=== PATIENT | female | born 1955 | race Caucasian/White ===

== ENCOUNTER 2020-06-07 09:51 | Outpatient (REF) | payer BC, SELFPAY ==
--- NOTE | 2020-06-07 10:04 | XR_ITS ---
EXAMINATION: XR ANKLE, LEFT CLINICAL INFORMATION: Pain left ankle COMPARISON: None TECHNIQUE: AP, lateral, and mortise views of the left ankle. FINDINGS: The malleoli are intact and the ankle mortise is symmetric. There is no fracture or dislocation. The talar dome shows no osteochondral lesion. The subtalar joint is unremarkable. The retrocalcaneal recess is preserved. There are bulky posterior and plantar spurs. IMPRESSION: No fracture or dislocation. Bulky posterior and plantar calcaneal spurs.
--- NOTE | 2020-06-07 10:21 | US_ITS ---
EXAMINATION: US VENOUS ULTRASOUND WITH DOPPLER LOWER EXTREMITY, LEFT CLINICAL INFORMATION: Edema distal left lower leg. Assess for occult DVT COMPARISON: Left leg venous ultrasound with Doppler 06/07/2018 TECHNIQUE: Ultrasound of the deep veins is performed from the hip to the calf with compression sonography and color and pulse Doppler assessment. Spectral analysis with color-flow imaging is performed. FINDINGS: There is normal venous compression and respiratory variation and augmented flow. The visualized common femoral vein, superficial femoral vein, profunda femoral vein, popliteal vein, and visualized mid calf peroneal and posterior tibial venous segments show no evidence of deep venous thrombosis. No popliteal fossa cyst. IMPRESSION: No DVT demonstrated in the left lower extremity.
[2020-06-07 11:47] LABS: Hematocrit 47.8 % (37-47); Hemoglobin 15.5 g/dl (12.0-16.0); Mean Corpuscular HGB Conc 32.4 g/dl (31.0-35.0); Mean Corpuscular Hemoglobin 29.2 pg (27.0-33.0); Mean Corpuscular Volume 90.2 fL (80-98); Mean Platelet Volume 10.8 fL (9.4-12.3); Platelet Count 266 X10*3/uL (160-400); Red Cell Distribution Width 13.7 % (11.0-16.0); White Blood Count 7.3 X10*3/uL (4.8-10.8)
[2020-06-07 12:05] LABS: Alanine Aminotransferase 21 U/L (0-31); Albumin Level 4.3 g/dL (3.5-5.0); Alkaline Phosphatase 78 U/L (39-117); Anion Gap 15 (12-20); Aspartate Amino Transferase 21 U/L (5-31); Bilirubin Total 0.4 mg/dL (0.0-1.0); Blood Urea Nitrogen 16 mg/dL (9-16); Calcium 9.1 mg/dL (8.4-10.2); Carbon Dioxide 27 mmol/L (22-29); Chloride 105 mmol/L (96-108); Cholesterol 158 mg/dL; Estimated Glomerular Filt Rate > 60; Glucose Fasting 98 mg/dL (60-99); HDL Cholesterol 36 mg/dL; LDL Cholesterol Calculated 93 mg/dl; Potassium 4.7 mmol/l (3.3-5.1); Sodium 142 mmol/L (135-145); Total Protein 6.7 g/dL (6.5-8.0); Triglycerides 145 mg/dL
[2020-06-12 12:07] LABS: Vitamin D 25-OH, D2 <4 ng/mL; Vitamin D 25-OH, D3 38 ng/mL; Vitamin D 25-OH, Total 38 ng/mL (30-100)
== END 2020-06-07 09:52 | disposition home or self-care (01) ==
LOC: HO.HMGCLDS 09:51
PROVIDERS: PCP Internal Medicine; Visit Provider Internal Medicine
DX: Z00.00 Encounter for general adult medical examination without abnormal findings (principal); M25.572 Pain in left ankle and joints of left foot; M25.472 Effusion, left ankle; E78.5 Hyperlipidemia, unspecified; M17.0 Bilateral primary osteoarthritis of knee; R60.0 Localized edema
CPT/HCPCS: 36415; 73610; 80053; 80061; 82306; 84443; 85027; 93971

== ENCOUNTER 2020-06-07 10:35 | Outpatient (REF) | payer BC, SELFPAY | END 2020-06-07 10:36 | disposition home or self-care (01) | LOC: HO.LAB 10:35 | PROVIDERS: Visit Provider Internal Medicine | DX: Z12.4 Encounter for screening for malignant neoplasm of cervix (principal) | CPT/HCPCS: 88142 ==

== ENCOUNTER 2020-06-24 11:26 | Outpatient (REF) | payer BC, SELFPAY ==
--- NOTE | 2020-06-24 11:29 | MM_ITS ---
EXAMINATION: BONE DENSITOMETRY CLINICAL INDICATION: Other specified disorders of bone density and structure, unspecified site. COMPARISON: This is the patient's baseline examination. TECHNIQUE: Using a [employer] DXA System (software version: 13.1) manufactured by [employer], dual-energy x-ray absorptiometry was performed of the lumbar spine and left hip. The images are of good technical quality. Summary results are attached. FINDINGS: AP SPINE L1-L4: BMD 1.053 g/cm2, Z-score -0.4, T-score -1.1, osteopenia. LEFT FEMUR, NECK: BMD 0.800 g/cm2, Z-score -0.9, T-score -1.7, osteopenia. LEFT FEMUR, TOTAL: BMD 0.956 g/cm2, Z-score 0.1, T-score -0.4, normal. IDENTIFIED RISK FACTORS: Early menopause, secondary osteoporosis. HISTORY OF FRACTURE: None listed. MEDICATIONS: Vitamin D. MM/XR DEXA axial skeleton IMPRESSION: 1. DIAGNOSIS: Osteopenia based on the lowest T-score value of -1.7 in the femoral neck applying World Health Organization criteria. 2. 10-YEAR FRACTURE RISK PREDICTION, FRAX: Major osteoporotic fracture (clinical spine, forearm, hip or shoulder) 8.5%. Hip fracture 0.9%. 3. Treatment Recommendations: NOF guidelines recommend consideration for treatment in postmenopausal women and men age 50 and older presenting with the following: -A hip or vertebral (clinical or morphometric) fracture. -T-score less than or equal to -2.5 at the femoral neck or spine after appropriate evaluation to exclude secondary causes. -Low bone mass at the hip or spine and a 10-year fracture probability by FRAX of greater than or equal to 3% for hip fracture or greater than or equal to 20% for major osteoporotic fracture based on the [place] adapted WHO algorithm. 4. Other Recommendations: All treatment decisions require clinical judgment and consideration of individual patient factors, including patient preferences, comorbidities, previous drug use, risk factors not captured in the FRAX model (e.g. frailty, falls, vitamin D deficiency, increased bone turnover, interval significant decline in bone density) and possible under or overestimation of fracture risk by FRAX. Additional medical evaluation for secondary cause of low bone mineral density may be appropriate. FUTURE SCAN RECOMMENDATION: People with diagnosed cases of osteoporosis or at high risk for fracture should have regular bone mineral density tests. For patients eligible for Medicare, routine testing is allowed once every 2 years. The testing frequency can be increased to one year for patients who have rapidly progressing disease, those who are receiving or discontinuing medical therapy to restore bone mass, or have additional risk factors.
== END 2020-06-24 11:27 | disposition home or self-care (01) ==
LOC: HO.MAMMO 11:26
PROVIDERS: PCP Internal Medicine; Visit Provider Internal Medicine
DX: Z13.820 Encounter for screening for osteoporosis (principal); M85.80 Other specified disorders of bone density and structure, unspecified site; Z78.0 Asymptomatic menopausal state; Z79.899 Other long term (current) drug therapy
CPT/HCPCS: 77080

== ENCOUNTER 2021-06-13 09:25 | Outpatient (REF) | payer BC, SELFPAY ==
[2021-06-13 11:34] LABS: Appearance Urine CLEAR; Color Urine YELLOW; Glucose Urine UA NEG (NEG); Leukocyte Esterase Urine TRACE (NEG); Nitrite Urine NEG (NEG); Specific Gravity - Urine 1.025 (1.005-1.025); Urine Blood TRACE (NEG); Urine Ketones NEG (NEG); Urine Protein NEG (NEG-TRACE)
[2021-06-13 11:35] LABS: Hematocrit 45.4 % (37-47); Hemoglobin 14.8 g/dl (12.0-16.0); Mean Corpuscular HGB Conc 32.6 g/dl (31.0-35.0); Mean Corpuscular Hemoglobin 29.5 pg (27.0-33.0); Mean Corpuscular Volume 90.6 fL (80-98); Mean Platelet Volume 10.8 fL (9.4-12.3); Platelet Count 249 X10*3/uL (160-400); Red Blood Count 5.01 X10*6/uL (4.20-5.50); Red Cell Distribution Width 13.9 % (11.0-16.0); White Blood Count 6.3 X10*3/uL (4.8-10.8)
[2021-06-13 12:15] LABS: Alanine Aminotransferase 18 U/L (0-31); Albumin Level 4.2 g/dL (3.5-5.0); Alkaline Phosphatase 72 U/L (39-117); Anion Gap 10 (12-20); Aspartate Amino Transferase 18 U/L (5-31); Bilirubin Total 0.5 mg/dL (0.0-1.0); Blood Urea Nitrogen 15 mg/dL (9-16); Calcium 9.3 mg/dL (8.4-10.2); Carbon Dioxide 30 mmol/L (22-29); Chloride 105 mmol/L (96-108); Cholesterol 169 mg/dL; Estimated Glomerular Filt Rate > 60; Glucose Fasting 104 mg/dL (60-99); HDL Cholesterol 37 mg/dL; LDL Cholesterol Calculated 106 mg/dl; Sodium 140 mmol/L (135-145); Total Protein 6.4 g/dL (6.5-8.0); Triglycerides 132 mg/dL
[2021-06-13 12:20] LABS: TSH reflex Free T4 1.22 uIU/mL (0.32-4.0)
[2021-06-13 12:40] LABS: RBC Urine 0-2 /HPF (0); Squamous Epithelial Cell Urine 3+ /LPF; WBC Urine 0-2 /HPF (0-4)
== END 2021-06-13 09:26 | disposition home or self-care (01) ==
LOC: HO.HMGCLDS 09:25
PROVIDERS: PCP Internal Medicine; Visit Provider Internal Medicine
DX: Z00.00 Encounter for general adult medical examination without abnormal findings (principal); E78.5 Hyperlipidemia, unspecified; E66.9 Obesity, unspecified
CPT/HCPCS: 36415; 80053; 80061; 81001; 84443; 85027

== ENCOUNTER 2021-06-30 12:43 | Outpatient (REF) | payer BC, SELFPAY ==
--- NOTE | ~2021-06-30 | XR_ITS ---
EXAMINATION: XR SHOULDER, RIGHT CLINICAL INFORMATION: Straining of the muscle. COMPARISON: None TECHNIQUE: Three views of the right shoulder. FINDINGS: No fracture or dislocation. The glenohumeral joint is well aligned. Moderate osteophyte formation at the inferior glenohumeral joint. Calcifications in the soft tissues adjacent to the humeral greater tuberosity. The acromioclavicular joint is intact with mild hypertrophic degenerative change. The visualized lung is clear. The visualized ribs are intact. XR/XR shoulder RT min 2V IMPRESSION: Mild to moderate degenerative changes at the right shoulder. There may be calcific tendinosis of the rotator cuff as well.
== END 2021-06-30 12:44 | disposition home or self-care (01) ==
LOC: HO.XRAY 12:43
PROVIDERS: PCP Internal Medicine; Visit Provider Internal Medicine
DX: S46.911A Strain of unspecified muscle, fascia and tendon at shoulder and upper arm level, right arm, initial encounter (principal)
CPT/HCPCS: 73030

== ENCOUNTER 2022-06-10 11:10 | Outpatient (REF) | payer MEDICARE, BC, SELFPAY ==
[2022-06-10 14:15] LABS: MANUAL DIFF FLAG NO
[2022-06-10 14:15] LABS: Appearance Urine Clear; Color Urine Yellow; Glucose Urine UA Negative (Negative); Leukocyte Esterase Urine Negative (Negative); Nitrite Urine Negative (Negative); Urine Blood Negative (Negative); Urine Ketones Negative (Negative); Urine Protein Negative (Neg-Trace)
[2022-06-10 14:18] LABS: Bacteria Urine None Seen (None Seen); Hyaline Casts Urine 0-2 /LPF (0-2); RBC Urine 0-2 /HPF (0-2); Squamous Epithelial Cell Urine 0-2 /HPF (0-2); WBC Urine 0-5 /HPF (0-5)
[2022-06-10 14:19] LABS: Basophils Absolute Auto 0.1 X10*3/uL (0.0-0.2); Basophils Percent Auto 0.9 % (0-2); Eosinophils Absolute Auto 0.1 X10*3/uL (0.0-0.4); Eosinophils Percent Auto 1.9 % (0-4); Hematocrit 44.3 % (37.0-47.0); Hemoglobin 14.5 g/dl (12.0-16.0); Imm Gran Abs Auto 0.04 X10*3/uL (0.00-0.03); Imm Gran Pct Auto 0.6 % (0.0-0.4); Lymphocytes Absolute Auto 1.8 X10*3/uL (1.2-4.9); Lymphocytes Percent Auto 25.4 % (20-40); Mean Corpuscular HGB Conc 32.7 g/dl (31.0-35.0); Mean Corpuscular Hemoglobin 29.8 pg (27.0-33.0); Mean Platelet Volume 10.3 fL (9.4-12.3); Monocytes Absolute Auto 0.7 X10*3/uL (0.1-1.2); Monocytes Percent Auto 9.5 % (2-11); Neutrophils Absolute Auto 4.3 x10*3/uL (2.0-8.3); Neutrophils Percent Auto 61.7 % (45-73); Platelet Count 267 X10*3/uL (160-400); Red Blood Count 4.87 X10*6/uL (4.20-5.50); Red Cell Distribution Width 14.6 % (11.0-16.0)
[2022-06-10 14:42] LABS: Alanine Aminotransferase 18 U/L (0-31); Albumin Level 4.1 g/dL (3.5-5.0); Alkaline Phosphatase 64 U/L (39-117); Anion Gap 15 (12-20); Aspartate Amino Transferase 19 U/L (5-31); Bilirubin Total 0.4 mg/dL (0.0-1.0); Blood Urea Nitrogen 16 mg/dL (9-16); Carbon Dioxide 27 mmol/L (22-29); Chloride 105 mmol/L (96-108); Cholesterol 162 mg/dL; Estimated Glomerular Filt Rate > 60; Glucose Fasting 98 mg/dL (60-99); HDL Cholesterol 39 mg/dL; LDL Cholesterol Calculated 99 mg/dl; Potassium 4.5 mmol/L (3.3-5.1); Sodium 142 mmol/L (135-145); Total Protein 6.4 g/dL (6.5-8.0); Triglycerides 123 mg/dL
[2022-06-10 15:10] LABS: TSH reflex Free T4 1.01 uIU/mL (0.32-4.0)
== END 2022-06-10 11:11 | disposition home or self-care (01) ==
LOC: HO.HMGCLDS 11:10
PROVIDERS: PCP Internal Medicine; Visit Provider Internal Medicine
DX: Z00.00 Encounter for general adult medical examination without abnormal findings (principal); I10 Essential (primary) hypertension; E66.9 Obesity, unspecified; E78.5 Hyperlipidemia, unspecified
CPT/HCPCS: 36415; 80053; 80061; 81001; 84443; 85025

== ENCOUNTER → 2022-12-16 07:48 | Outpatient (REF) | payer MEDICARE, BC, SELFPAY ==
--- NOTE | 2022-12-16 07:51 | CA_ITS ---
Transthoracic Echocardiogram Patient (Last, First, Middle): Ana María Heller A Gender: Female Date of : 1955 Age: 67 Procedure Date: 12/16/2022 Procedure Type: Transthoracic Echocardiogram Location: OP Height: 154.94 cm Weight: 90.72 kg BSA: 1.89 m2 Heart Rate: 66 bpm BP: 120 / 70 mmHg Group Captain: SB Referring MD: Sandra Sierra MD Symptoms: M79.89 - Other specified soft tissue disorders Study Quality: Adequate w contrast ECG Rhythm: Sinus Conclusions: - The left ventricular systolic function is normal. The calculated ejection fraction is 67% by biplane method. - There is mildly decreased right ventricular systolic function. - No obvious valvular pathology seen on this study. Findings Procedure Information Contrast agent, definity, is being given per protocol without apparent complications. Left Ventricle Normal left ventricular cavity size. There is normal left ventricular wall thickness. The left ventricular systolic function is normal. The calculated ejection fraction is 67% by biplane method. There is no evidence of regional wall motion abnormalities. Evidence suggests grade I (mild) diastolic dysfunction. Focal hypertrophy of basal septum. Right Ventricle Normal right ventricular cavity size. There is mildly decreased right ventricular systolic function. Atria Both atria are normal in size. Aortic Valve There is a normal trileaflet aortic valve. There is no aortic valve stenosis. There is no aortic valve regurgitation. Mitral Valve The mitral valve appears normal. There is trace mitral valve regurgitation. There is no mitral valve stenosis. Pulmonic Valve The pulmonic valve is likely normal. Tricuspid Valve Normal tricuspid valve structure. There is trace tricuspid valve regurgitation. There is no evidence of pulmonary hypertension. Great Vessels The asc aorta and aortic arch are normal in size. Venous The inferior vena cava is normal in size and collapses greater than 50% with inspiration. Pericardium/Pleural There is no evidence of pericardial effusion. Prior Study Comparison No prior study available for comparison. Recommendations, Care & Conclusions No obvious valvular pathology seen on this study. Measurements 2D Linear Measurements IVSd: 0.72 0.6-0.9/0.6-1.0 cm LVIDd: 4.06 3.9-5.3/4.2-5.9 cm LVIDd Index: 2.15 2.4-3.2/2.2-3.1 cm/m2 LVIDs: 2.62 2.0-3.6 cm LVPWd: 0.86 0.7-1.1 cm LA Diam: 3.10 2.7-3.8/3.0-4.0 cm LAIDs Index: 1.64 1.5-2.3 cm/m2 LV Mass: 116.49 67-162/88-224 g LV Mass Index: 61.63 43-95/49-115 g/m2 LVOT Diam: 2.10 3.0+(-)1.3 cm 2D Systolic Function EF 4C: 68.80 >55% EF 2C: 64.90 >55% EF BiP: 66.60 >55% Mitral Valve MV Pk E: 0.63 MV PK A: 0.72 MV Decel Time: 168.00 E/A: 0.90 E'Lateral: 5.33 E'Medial: 3.70 E/E' Med: 17.00 E/E' Lat: 11.80 PHT: 49.00 MVA PHT: 4.49 Decel Brule: 3.75 Aortic Valve AoV Pk Jj: 1.02 AoV Pk Grad: 4.00 MAGALI: 2.70 LVOT LVOT Pk Jj: 0.78 LVOT Mn Jj: 0.53 LVOT VTI: 0.15 LVOT Pk Grad: 2.00 LVOT Mn Grad: 1.00 LVOT Diam: 2.10 LVOT Area: 3.46 Diastolic Function MV Pk E: 0.63 MV Pk A: 0.72 E/A: 0.90 E'Medial: 3.70 E/E' Med: 17.00 E' Laterial: 5.33 E/E' Lat: 11.80 Right Ventricle TAPSE (mm): 15.80 TVS' Jj: 8.59 Tricuspid Valve TR Pk Jj: 1.63 TR Pk Grad: 11.00 RA Press: 3.00 RVSP: 14.00 Great Vessels Aorta Sinus of Valsalva: 3.10 2.0-3.5 cm Ao Asc: 2.50 2.1-3.4 cm Ao Arch: 2.50 Pulmonary Valve PV Pk Jj: 0.76 Peak PV Grad: 2.00 Updated in Other Vendor System with Status of Final Fabrice Rodriguez MD electronically signed on 12/18/2022 1:01:48 PM with status of Final
== END ==
LOC: HO.CARD 07:48
PROVIDERS: PCP Internal Medicine; Visit Provider Internal Medicine
DX: R60.9 Edema, unspecified (principal); I10 Essential (primary) hypertension; M79.89 Other specified soft tissue disorders
CPT/HCPCS: 93306; Q9957

== ENCOUNTER 2022-12-25 10:40 | Outpatient (REF) | payer MEDICARE, BC, SELFPAY ==
[2022-12-25 12:30] LABS: B Type Natriuretic Peptide 12 pg/mL (<100)
[2022-12-25 12:50] LABS: Anion Gap 12 (12-20); Blood Urea Nitrogen 21 mg/dL (9-16); Calcium 9.4 mg/dL (8.4-10.2); Carbon Dioxide 30 mmol/L (22-29); Chloride 103 mmol/L (96-108); Estimated Glomerular Filt Rate > 60; Glucose Random 92 mg/dL (60-115); Potassium 4.7 mmol/L (3.3-5.1); Sodium 140 mmol/L (135-145)
== END 2022-12-25 10:41 | disposition home or self-care (01) ==
LOC: HO.HMGCLDS 10:40
PROVIDERS: PCP Internal Medicine; Visit Provider Internal Medicine
DX: R60.9 Edema, unspecified (principal)
CPT/HCPCS: 36415; 80048; 83880

== ENCOUNTER → 2023-01-19 15:24 | Outpatient (BNVA) | payer MEDICARE, BC, SELFPAY | PROVIDERS: PCP Internal Medicine; Visit Provider Surgery Vascular Surgery | DX: I83.11 Varicose veins of right lower extremity with inflammation (principal) | CPT/HCPCS: 99202 ==

== ENCOUNTER 2023-01-29 10:29 | Outpatient (REF) | payer MEDICARE, BC, SELFPAY ==
--- NOTE | ~2023-01-29 | US_ITS ---
EXAMINATION: US LOWER EXTREMITY VENOUS (REFLUX EXAM), BILATERAL CLINICAL INDICATION: Chronic venous insufficiency with lower extremity varicose veins, inflammation COMPARISON: None. TECHNIQUE: Color flow triplex imaging and compression Doppler was performed to evaluate both the deep and the superficial systems bilaterally. To evaluate the superficial system, the examination was performed in the upright position. Color-flow Doppler ultrasound and compression ultrasound were utilized. In addition, maneuvers were utilized to demonstrate reflux. FINDINGS: 1. DEEP VENOUS ULTRASOUND OF THE RIGHT LOWER EXTREMITY: Common Femoral Vein: Compressible, normal respiratory variation and augmented flow. Femoral Vein: Compressible, normal color flow and augmentation. Popliteal Vein: Compressible, normal augmentation. Deep Reflux: There is no evidence of reflux in the deep system in either the common femoral vein or the popliteal vein. There is no evidence of a Caldwell's cyst. 2. SUPERFICIAL ULTRASOUND WITH DOPPLER OF RIGHT LOWER EXTREMITY: GREAT SAPHENOUS VEIN: Saphenofemoral Junction: 0.5 cm; Reflux: 0 ms Proximal Thigh: 0.3 cm; Reflux: 0 ms Mid Thigh: 0.2 cm; Reflux: 0 ms Above Knee: 0.2 cm; Reflux: 0 ms At Knee: Not visualized Below Knee: 0.2 cm; Reflux: 0 ms Mid Calf: 0.2 cm; Reflux: 0 ms Ankle: 0.2 cm; Reflux: 0 ms DUPLICATED MEDIAL GREAT SAPHENOUS VEIN: Diameter: None imaged Reflux: NA DUPLICATED LATERAL GREAT SAPHENOUS VEIN: Diameter: 0.4 cm Reflux: None SMALL SAPHENOUS VEIN: Proximal: 0.2 cm; Reflux: 0 ms Distal: 0.2 cm; Reflux: 0 ms VEIN OF GIACOMINI: Size: NA Reflux: NA PERFORATORS: Location: None significant Size: NA Reflux: NA VARICOSITIES: Location: Distal thigh Size: 0.3 cm Reflux: None 3. DEEP VENOUS ULTRASOUND OF THE LEFT LOWER EXTREMITY: Common Femoral Vein: Compressible, normal respiratory variation and augmented flow. Femoral Vein: Compressible, normal color flow and augmentation. Popliteal Vein: Compressible, normal augmentation. Deep Reflux: There is no evidence of reflux in the deep system in either the common femoral vein or the popliteal vein. There is no evidence of a Caldwell's cyst. 4. SUPERFICIAL ULTRASOUND WITH DOPPLER OF LEFT LOWER EXTREMITY: GREAT SAPHENOUS VEIN: Saphenofemoral Junction: 0.4 cm; Reflux: 0 ms Proximal Thigh: 0.3 cm; Reflux: 0 ms Mid Thigh: 0.2 cm; Reflux: 0 ms Above Knee: 0.2 cm; Reflux: 0 ms At Knee: 0.3 cm; Reflux: 0 ms Below Knee: 0.3 cm; Reflux: 0 ms Mid Calf: 0.2 cm; Reflux: 0 ms Ankle: 0.3 cm; Reflux: 0 ms DUPLICATED MEDIAL GREAT SAPHENOUS VEIN: Diameter: None imaged Reflux: NA DUPLICATED LATERAL GREAT SAPHENOUS VEIN: Diameter: 0.2 cm Reflux: None SMALL SAPHENOUS VEIN: Proximal: 0.2 cm; Reflux: 0 ms Distal: 0.2 cm; Reflux: 0 ms VEIN OF GIACOMINI: Size: NA Reflux: NA PERFORATORS: Location: Mid calf Size: 0.3 cm Reflux: None VARICOSITIES: Location: Posterior distal thigh and a posterior lateral distal thigh Size: 0.3 cm Reflux: Ranging from 1904 ms to 2616 ms US/US venous duplex LE BI IMPRESSION: Right: No significant venous insufficiency or reflux in the great saphenous vein or small saphenous vein Left: No significant venous insufficiency or reflux in the great saphenous vein or small saphenous vein. There are varicose veins in the posterior and posterior lateral distal thigh with reflux as described above
== END 2023-01-29 10:30 | disposition home or self-care (01) ==
LOC: HO.US 10:29
PROVIDERS: PCP Internal Medicine; Visit Provider Surgery Vascular Surgery
DX: I83.11 Varicose veins of right lower extremity with inflammation (principal)
CPT/HCPCS: 93970

== ENCOUNTER 2023-03-11 11:13 | Outpatient (AMB) | payer MEDICARE, BC, SELFPAY ==
[2023-03-11 11:15] VITALS: BP 110/66; PULSE 79; O2SAT 98; BMI 34.9
--- NOTE | 2023-03-11 11:15 | MHC.PC.OV ---
Vital Signs 03/11/23 11:15 Height 5 ft 3 in Weight 197 lb BMI 34.9 BP 110/66 Blood Pressure Location Lt brachial Position Sitting Pulse 79 Pulse Source Pulse Oximeter Pulse Oximetry (%) 98 Oxygen Delivery Method Room Air Intake Visit Reasons: BP Follow up Intake Note: Pt is here today for a follow up visit on BP. Allergies doxycycline Allergy (Verified 03/11/23 11:18) rash on face chest and arms Medication List - Last Reconciled 03/11/23 by Sandra Sierra MD cholecalciferol (vitamin D3) 50 mcg PO DAILY furosemide (Lasix) 20 mg PO DAILY gabapentin 100 mg PO BID lidocaine 5% 1 patch topical DAILY meloxicam 15 mg PO DAILY PRN olmesartan 15 mg (3 x 5 mg) PO DAILY omega [id number]-fish oil 1,000 mg (120 mg-180 mg) (Fish Oil) 1 cap PO DAILY pravastatin 20 mg PO DAILY Tobacco use date assessed: 12/07/22 Dental Screening Dental Screen Date: 03/11/23 Did you have a dental visit in the last 12 months?: Yes Did you have a dental problem in the last 6 months where you did not have access to dental care?: No Was dental information given to patient?: Patient has dentist HPI BP Follow up HPI Details Pt presents for the follow-up of hypertension hyperlipidemia and chronic lower extremity edema. She has been taking furosemide 4 times a week without significant improvement. Patient had venous Doppler and will follow-up with vascular surgeon Dr. Wilkes. Patient try compression knee highs but could not tolerate to wear them. Echocardiogram was normal [facility] Medical History (Updated 01/20/23 @ 12:41 by Eben Wilkes MD) Annual physical exam HTN (hypertension) Hyperlipemia Knee pain, bilateral Mammogram normal Normal Pap smear Obese Osteoarthritis of knees, bilateral Osteopenia Pain and swelling of left ankle Tear meniscus knee Surgical History H/O colonoscopy No pertinent past surgical history Family History Father No problems noted. Mother HTN (hypertension) Stroke Son No problems noted. Son No problems noted. Daughter No problems noted. Social History (Updated 01/19/23 @ 15:32 by Massiel Alfonso) Housing: House Alcohol intake: current Alcohol intake frequency: holidays/special occasions only Patient Tobacco Use Status: Never used Tobacco e-Cigarette/Vaping Use: Never Used Current occupational status: employed Cognitive needs: No Hearing needs: No Vision needs: No Questionnaire Thrive Questionnaire Date Thrive assessed: 12/07/22 SHADE-7 AMB Questionnaire SHADE-7 Date SHADE - 7 assessed: 12/07/22 Source: Developed by Drs. Gabe Scott, Eva Ashford, Dominic Gutierrez and colleagues, with an educational jay from [employer]. Review of Systems Const All systems reviewed & are unremarkable except as noted in HPI and below Reports no additional complaints Eyes Reports no additional complaints ENT Reports no additional complaints Card Reports no additional complaints Resp Reports no additional complaints GI Reports no additional complaints Reports no additional complaints Physical exam (Primary Care) Vital Signs: Last Vital Signs Pulse 79 03/11/23 11:15 BP 110/66 03/11/23 11:15 Pulse Ox 98 03/11/23 11:15 Oxygen Delivery Method Room Air 03/11/23 11:15 BMI result Body Mass Index 34.9 Tobacco/Smoking Status: Tobacco use Status Tobacco use date assessed 12/07/22 03/11/23 11:16 Patient Tobacco Use Status Never used Tobacco 03/11/23 11:16 e-Cigarette/Vaping Use Never Used 03/11/23 11:16 Thrive Assessment: Date of Thrive Assessment Date Thrive assessed 12/07/22 03/11/23 11:16 Const General: no acute distress HENMT Mouth: Normal oral and palatal mucosa present Neck Neck: Yes supple Resp Effort & Inspection: normal respiratory effort Auscultation: clear to auscultation bilaterally Cardio Rhythm: regular rhythm Heart sounds: S1 normal heart sound present and S2 normal heart sound present Extrem Other: 1+ pitting edema bilaterally Assessment and Plan Assessment & Plan (1) Edema: Code(s): R60.9 - Edema, unspecified Plan: f/u with vascular surgeon (2) HTN (hypertension): Code(s): I10 - Essential (primary) hypertension Plan: cont med (3) Hyperlipemia: Code(s): E78.5 - Hyperlipidemia, unspecified Plan: cont statin (4) Obese: Code(s): E66.9 - Obesity, unspecified Plan: weight loss discussed Coding Level of Care Code Est Pt Level 4 (54510) Diagnoses Edema R60.9 HTN (hypertension) I10 Hyperlipemia E78.5 Obese E66.9
== END 2023-03-11 11:59 | disposition home or self-care (01) ==
PROVIDERS: Visit Provider Internal Medicine
DX: I10 Essential (primary) hypertension (principal); E66.9 Obesity, unspecified; Z68.34 Body mass index [BMI] 34.0-34.9, adult; E78.5 Hyperlipidemia, unspecified; R60.9 Edema, unspecified
CPT/HCPCS: 99214

== ENCOUNTER 2023-03-11 15:13 | Outpatient (AMB) | payer MEDICARE, BC, SELFPAY ==
[2023-03-11 15:16] VITALS: BMI 34.9
--- NOTE | 2023-03-11 15:16 | A.OFFVIS_ITS ---
Intake Vital Signs 03/11/23 15:16 Height 5 ft 3 in Weight 197 lb BMI 34.9 Intake Visit Reasons: follow up US 01/29/2023 Intake Note: follow up US for LE swelling, Left LE worse than Right LE. Pt states ankle and foot are swollen. Pt states swelling is worse when she is on her feet all day. States socks and shoes hurt her feet. Accompanied by: Self / Same As Patient Allergies doxycycline Allergy (Verified 03/11/23 15:20) rash on face chest and arms HPI follow up 01/29/2023 HPI Details Very pleasant 67-year-old female presents for follow-up regarding lower extremity swelling pain and discomfort. She reports it is left more so than right. It has been persistent. She has had a trial of compression stockings which she has not been able to tolerate especially with a tight knee band. In addition she does have complaints of plantar fasciitis. She now presents to us for follow-up evaluation with venous insufficiency testing. FOR[facility]LY [facility], [facility] Medical History Annual physical exam HTN (hypertension) Hyperlipemia Knee pain, bilateral Mammogram normal Normal Pap smear Obese Osteoarthritis of knees, bilateral Osteopenia Pain and swelling of left ankle Tear meniscus knee Surgical History H/O colonoscopy No pertinent past surgical history Family History Father No problems noted. Mother HTN (hypertension) Stroke Son No problems noted. Son No problems noted. Daughter No problems noted. Social History Housing: House Alcohol intake: current Alcohol intake frequency: holidays/special occasions only Patient Tobacco Use Status: Never used Tobacco e-Cigarette/Vaping Use: Never Used Current occupational status: employed Cognitive needs: No Hearing needs: No Vision needs: No Review of Systems Const Reports as per HPI ENT Reports no additional complaints Card Denies chest pain, Denies chest pain at rest and Denies chest pain with activity Resp Denies chest congestion and Denies cough GI Reports no additional complaints Musc Details: pain over varicosities, aching of lower extremities, swelling, cramping, heaviness and tiredness, itching Denies abnormal gait Skin/Breast Reports pruritus and Denies wounds Neuro Reports no additional complaints and Denies abnormal gait Psych Denies no additional complaints Physical Exam Vital Signs: BMI result Body Mass Index 34.9 Const General: cooperative, healthy appearing and comfortable Orientation/consciousness: oriented to person, oriented to place and oriented to time Neck Carotids: no bruits Chest Chest palpation & inspection: normal inspection of the chest and normal palpation of entire chest wall Resp Effort & Inspection: normal respiratory effort and able to speak in complete sentences Cardio Rate: regular rate Heart sounds: S1 normal heart sound present and S2 normal heart sound present Peripheral pulses: Peripheral pulses 2+ throughout GI Inspection: Yes normal to inspection Skin Other: +2 edema, left greater than right General skin exam: dry skin Neuro General: oriented to person, oriented to place and oriented to time Extrem Right lower extremity: full ROM, normal capillary refill and edema Left lower extremity: full ROM, normal capillary refill and edema Psych Mental Status: mental status grossly normal Results Reviewed Results Reviewed: Brief summary of venous insufficiency testing is as follows: right great saphenous vein: negative right small saphenous vein: negative right accessory vein: none present left great saphenous vein: negative left small saphenous vein: negative left accessory vein: none present Please note there is no evidence of any venous aneurysms or significant tortuosity Assessment & Plan Assessment & Plan (1) Edema: Code(s): R60.9 - Edema, unspecified Plan: In short unclear etiology of lower extremity swelling it does not appear to be arterial in nature as she does have palpable pulses and venous insufficiency testing has shown to be negative. We did discuss routine conservative measures including compression elevation and exercise. In addition should the pain and discomfort persist may benefit from of podiatric evaluation in particular for plantar fasciitis. Patient will follow up with us on as-needed basis. Thank you for allowing us to assist in her care. If there are any questions or concerns please do not hesitate to contact us. Coding Level of Care Code Est Pt Level 4 (35732) Diagnoses Edema R60.9
== END 2023-03-11 15:50 | disposition home or self-care (01) ==
PROVIDERS: PCP Internal Medicine; Visit Provider Surgery Vascular Surgery
DX: R60.9 Edema, unspecified (principal)
CPT/HCPCS: 99213

== ENCOUNTER → 2023-03-11 15:13 | Outpatient (BNVA) | payer MEDICARE, BC, SELFPAY | PROVIDERS: PCP Internal Medicine; Visit Provider Surgery Vascular Surgery | DX: R60.0 Localized edema (principal) | CPT/HCPCS: 99212 ==

== ENCOUNTER 2023-08-09 10:00 | Outpatient (REF) | payer MEDICARE, BC, SELFPAY ==
[2023-08-09 13:17] LABS: MANUAL DIFF FLAG NO
[2023-08-09 13:41] LABS: Basophils Absolute Auto 0.1 X10*3/uL (0.0-0.2); Eosinophils Absolute Auto 0.1 X10*3/uL (0.0-0.4); Eosinophils Percent Auto 1.7 % (0-4); Hematocrit 45.5 % (37.0-47.0); Hemoglobin 14.6 g/dl (12.0-16.0); Imm Gran Abs Auto 0.03 X10*3/uL (0.00-0.03); Imm Gran Pct Auto 0.5 % (0.0-0.4); Lymphocytes Absolute Auto 1.8 X10*3/uL (1.2-4.9); Lymphocytes Percent Auto 30.1 % (20-40); Mean Corpuscular HGB Conc 32.1 g/dl (31.0-35.0); Mean Corpuscular Hemoglobin 28.9 pg (27.0-33.0); Mean Corpuscular Volume 89.9 fL (80.0-98.0); Mean Platelet Volume 10.2 fL (9.4-12.3); Monocytes Absolute Auto 0.5 X10*3/uL (0.1-1.2); Monocytes Percent Auto 9.3 % (2-11); Neutrophils Absolute Auto 3.3 x10*3/uL (2.0-8.3); Neutrophils Percent Auto 57.4 % (45-73); Platelet Count 291 X10*3/uL (160-400); Red Blood Count 5.06 X10*6/uL (4.20-5.50); Red Cell Distribution Width 13.8 % (11.0-16.0); White Blood Count 5.8 X10*3/uL (4.8-10.8)
[2023-08-09 14:12] LABS: Alanine Aminotransferase 16 U/L (0-31); Alkaline Phosphatase 65 U/L (39-117); Anion Gap 12 (12-20); Aspartate Amino Transferase 19 U/L (5-31); Bilirubin Total 0.4 mg/dL (0.0-1.0); Blood Urea Nitrogen 17 mg/dL (9-16); Calcium 9.5 mg/dL (8.4-10.2); Carbon Dioxide 29 mmol/L (22-29); Chloride 106 mmol/L (96-108); Cholesterol 159 mg/dL (<200); Estimated Glomerular Filt Rate > 60; Glucose Fasting 100 mg/dL (60-99); HDL Cholesterol 36 mg/dL (>40); LDL Cholesterol Calculated 101 mg/dL (<100); Potassium 4.8 mmol/L (3.3-5.1); Sodium 142 mmol/L (135-145); Triglycerides 112 mg/dL (<150)
[2023-08-09 14:28] LABS: TSH reflex Free T4 1.15 uIU/mL (0.32-4.0)
== END 2023-08-09 10:01 | disposition home or self-care (01) ==
LOC: HO.HMGCLDS 10:00
PROVIDERS: PCP Internal Medicine; Visit Provider Internal Medicine
DX: I10 Essential (primary) hypertension (principal); R60.9 Edema, unspecified; E78.5 Hyperlipidemia, unspecified
CPT/HCPCS: 36415; 80053; 80061; 84443; 85025

== ENCOUNTER 2023-09-01 12:56 | Outpatient (AMB) | payer MEDICARE, BC, SELFPAY ==
[2023-09-01 13:35] VITALS: BP 126/70; PULSE 74; O2SAT 100; BMI 34.7
--- NOTE | 2023-09-01 13:35 | MHC.PC.OV ---
Vital Signs 09/01/23 13:35 Height 5 ft 3 in Weight 196 lb BMI 34.7 BP 126/70 Blood Pressure Location Lt brachial Position Sitting Pulse 74 Pulse Source Pulse Oximeter Pulse Oximetry (%) 100 Oxygen Delivery Method Room Air Intake Visit Reasons: PE/secondary covers Intake Note: Pt is here today for PE. Allergies doxycycline Allergy (Verified 09/01/23 13:38) rash on face chest and arms Medication List - Last Reconciled 09/01/23 by Sandra Sierra MD cholecalciferol (vitamin D3) 50 mcg PO DAILY gabapentin 100 mg PO BID lidocaine 5% 1 patch topical DAILY meloxicam 15 mg PO DAILY PRN olmesartan 15 mg (3 x 5 mg) PO DAILY omega 5-gep-qyu-fish oil 1,000 mg (120 mg-180 mg) (Fish Oil) 1 cap PO DAILY pravastatin 20 mg PO DAILY Tobacco use date assessed: 09/01/23 Fall risk assessment: No Falls in past year Last assessed Fall Risk: 09/01/23 Dental Screening Dental Screen Date: 09/01/23 Did you have a dental visit in the last 12 months?: Yes Did you have a dental problem in the last 6 months where you did not have access to dental care?: No Was dental information given to patient?: Patient has dentist HPI PE/secondary covers HPI Details Patient presents for physical. Her mother in May 31 and patient is grieving. She complains of worsening right thumb index and middle finger tingling and numbness sensation worse at night or when using it a lot, working on a computer. 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 She has been wearing wrist splint at night. [facility] Medical History (Updated 09/01/23 @ 13:56 by Sandra Sierra MD) Knee pain, bilateral HTN (hypertension) Obese Osteopenia Annual physical exam Normal Pap smear Mammogram normal Hyperlipemia Pain and swelling of left ankle Osteoarthritis of knees, bilateral Tear meniscus knee Surgical History (Updated 09/01/23 @ 13:56 by Sandra Sierra MD) H/O colonoscopy No pertinent past surgical history Family History Father No problems noted. Mother HTN (hypertension) Stroke Son No problems noted. Son No problems noted. Daughter No problems noted. Social History (Reviewed 03/11/23 @ 15:20 by KEARA Freed Housing: House Alcohol intake: current Alcohol intake frequency: holidays/special occasions only Patient Tobacco Use Status: Never used Tobacco e-Cigarette/Vaping Use: Never Used Current occupational status: employed Cognitive needs: No Hearing needs: No Vision needs: No Questionnaire Thrive Questionnaire Date Thrive assessed: 12/07/22 AUDIT C Alcohol Use Questionnaire (AUDIT-C) 1. How often do you have a drink containing alcohol?: Monthly or less 2. How many drinks containing alcohol do you have on a typical day when you are drinking?: 1 or 2 3. How often do you have six or more drinks on one occasion?: Never Total Score: 1 SHADE-7 AMB Questionnaire SHADE-7 Date SHADE - 7 assessed: 12/07/22 Source: Developed by Drs. Gabe Scott, Eva Ashford, Dominic Gutierrez and colleagues, with an educational jay from [employer]. Review of Systems Const All systems reviewed & are unremarkable except as noted in HPI and below Reports no additional complaints Eyes Reports no additional complaints ENT Reports no additional complaints Card Reports no additional complaints Resp Reports no additional complaints GI Reports no additional complaints Reports no additional complaints Physical exam (Primary Care) Vital Signs: Last Vital Signs Pulse 74 09/01/23 13:35 BP 126/70 09/01/23 13:35 Pulse Ox 100 09/01/23 13:35 Oxygen Delivery Method Room Air 09/01/23 13:35 BMI result Body Mass Index 34.7 Tobacco/Smoking Status: Tobacco use Status Tobacco use date assessed 09/01/23 09/01/23 13:43 Patient Tobacco Use Status Never used Tobacco 09/01/23 13:43 e-Cigarette/Vaping Use Never Used 09/01/23 13:43 Thrive Assessment: Date of Thrive Assessment Date Thrive assessed 12/07/22 09/01/23 13:43 Const General: no acute distress HENMT Head: Yes normal to inspection Ears: hearing grossly normal bilaterally Face and sinus: Yes normal facial exam Throat: Yes posterior oropharynx normal Eyes General: appearance normal, both eyes and all related structures Neck Neck: Yes no lymphadenopathy and Yes supple Resp Effort & Inspection: normal respiratory effort Auscultation: clear to auscultation bilaterally Cardio Rhythm: regular rhythm Heart sounds: S1 normal heart sound present and S2 normal heart sound present GI Inspection: Yes normal to inspection Palpation (GI): Soft to palpation Percussion: Yes normal to percussion Auscultation: normal bowel sounds Assessment and Plan Assessment & Plan (1) Carpal tunnel syndrome of right wrist: Code(s): G56.01 - Carpal tunnel syndrome, right upper limb Plan: Obtain EMG (2) HTN (hypertension): Code(s): I10 - Essential (primary) hypertension Plan: Continue olmesartan (3) Annual physical exam: Comment: well-balanced diet regular exercise and loss discussed with patient, she will schedule her mammogram Code(s): Z00.00 - Encounter for general adult medical examination without abnormal findings Plan: Patient have colonoscopy in October (4) Hyperlipemia: Code(s): E78.5 - Hyperlipidemia, unspecified Plan: Continue statin, follow-up in 4 months Orders: Orders NE nerve conduction velocity Today G56.01 - Carpal tunnel syndrome, right upper limb Medications: Discontinued furosemide (Lasix) Discontinued Reason: Doctor's Order 20 mg PO DAILY 30 tabs 2RF Coding Level of Care Code Est Pt Prev Care >65y(74817) Diagnoses Carpal tunnel syndrome of right wrist G56.01 HTN (hypertension) I10 Annual physical exam Z00.00 Hyperlipemia E78.5
== END 2023-09-01 14:10 | disposition home or self-care (01) ==
PROVIDERS: PCP Internal Medicine; Visit Provider Internal Medicine
DX: Z00.00 Encounter for general adult medical examination without abnormal findings (principal); G56.01 Carpal tunnel syndrome, right upper limb; I10 Essential (primary) hypertension; E78.5 Hyperlipidemia, unspecified
CPT/HCPCS: 99397

== ENCOUNTER 2023-11-03 12:50 | Outpatient (REF) | payer MEDICARE, BC, SELFPAY ==
--- NOTE | 2023-11-03 12:55 | EMG_ITS ---
Chief complaint: Right worse than left hand numbness Reason for referral: Evaluate for Carpal Tunnel Syndrome Referred by: Dr. Sierra Procedure done: Bilateral upper extremities NCS/EMG Precautions and/or limitations: None The limb temperature was monitored continuously and remained between 32-36 degrees C during the performance of the NCS. Nerve Conduction Studies Anti Sensory Summary Table ?Stim Site NR Onset (ms) Norm Onset (ms) Peak (ms) Norm Peak (ms) O-P Amp (?V) Norm O-P Amp Site1 Site2 Delta-0 (ms) Dist (cm) Jj (m/s) Norm Jj (m/s) Left Median Anti Sensory (2nd Digit) Wrist ? 2.7 3.8 <3.6 40.1 >10 Wrist 2nd Digit 2.7 14.0 52 Left Median Anti Sensory Run #2 (2nd Digit) Wrist ? 2.9 3.8 <3.6 51.1 >10 Wrist 2nd Digit 2.9 14.0 48 Right Median Anti Sensory (2nd Digit) Wrist ? 4.1 4.8 <3.6 24.9 >10 Wrist 2nd Digit 4.1 14.0 34 Right Radial Anti Sensory (Thumb) Forearm ? 1.5 2.3 <3.1 37.0 Forearm Thumb 1.5 0.0 Left Ulnar Anti Sensory (5th Digit) Wrist ? 2.7 3.5 <3.7 38.8 >15.0 Wrist 5th Digit 2.7 14.0 52 Right Ulnar Anti Sensory (5th Digit) Wrist ? 2.8 3.7 <3.7 16.6 >15.0 Wrist 5th Digit 2.8 14.0 50 Motor Summary Table ?Stim Site NR Onset (ms) Norm Onset (ms) O-P Amp (mV) Norm O-P Amp iAmp (mV) Amp (1st) (%) Site1 Site2 Delta-0 (ms) Dist (cm) Jj (m/s) Norm Jj (m/s) Left Median Motor (Abd Poll Brev) Wrist ? 3.5 <3.9 9.1 >4.5 11.5 100.0 Elbow Wrist 3.5 19.0 54 >45 Elbow ? 7.0 9.1 11.0 100.0 Right Median Motor (Abd Poll Brev) Wrist ? 4.6 <3.9 8.2 >4.5 9.6 100.0 Elbow Wrist 3.8 19.0 50 >45 Elbow ? 8.4 8.3 10.0 101.2 Left Ulnar Motor (Abd Dig Minimi) Wrist ? 2.8 <3.0 7.5 >5 9.0 100.0 B Elbow Wrist 3.3 16.5 50 >45 B Elbow ? 6.1 6.1 7.2 81.3 A Elbow B Elbow 1.8 10.0 56 >45 A Elbow ? 7.9 6.5 7.6 86.7 Right Ulnar Motor (Abd Dig Minimi) Wrist ? 3.0 <3.0 6.2 >5 7.2 100.0 B Elbow Wrist 3.2 17.0 53 >45 B Elbow ? 6.2 5.8 6.9 93.5 A Elbow B Elbow 1.1 10.0 91 >45 A Elbow ? 7.3 5.6 6.8 90.3 Comparison Summary Table ?Stim Site NR Peak (ms) Norm Peak (ms) P-T Amp (?V) Site1 Site2 Delta-P (ms) Norm Delta (ms) Left Median/Radial Dig I Comparison (Digit 1 - 10cm) Median ? 2.9 <2.9 44.6 EMG ?Side Muscle Nerve Root Ins Act Fibs Psw Amp Dur Poly Recrt Int Pat Comment Right 1stDorInt Ulnar C8-T1 Nml Nml Nml Nml Nml 0 Nml Complete Right FlexCarRad Median C6-7 Nml Nml Nml Nml Nml 0 Nml Complete Right Biceps Musculocut C5-6 Nml Nml Nml Nml Nml 0 Nml Complete Right Triceps Radial C6-7-8 Nml Nml Nml Nml Nml 0 Nml Complete Right Deltoid Axillary C5-6 Nml Nml Nml Nml Nml 0 Nml Complete Left 1stDorInt Ulnar C8-T1 Nml Nml Nml Nml Nml 0 Nml Complete Left FlexCarRad Median C6-7 Nml Nml Nml Nml Nml 0 Nml Complete Left Biceps Musculocut C5-6 Nml Nml Nml Nml Nml 0 Nml Complete Left Triceps Radial C6-7-8 Nml Nml Nml Nml Nml 0 Nml Complete Left Deltoid Axillary C5-6 Nml Nml Nml Nml Nml 0 Nml Complete FINDINGS: Right median motor nerve showed prolonged distal latency, normal amplitude and normal conduction velocity. Bilateral median sensory nerves showed prolonged peak latency. All other nerves tested were within normal. Concentric needle EMG was performed in selected muscles of the bilateral upper extremities. Study did not reveal signs of electric abnormalities as shown in the table below. IMPRESSION: 1. This is an abnormal study. 2. There is electrodiagnostic evidence for right moderate-severe and left mild median neuropathy at the wrist, consistent with carpal tunnel syndrome. 3. There is no electrodiagnostic evidence for ulnar neuropathy, brachial plexopathy, or cervical radiculopathy. Thank you for your kind referral. Gemma Reid MD, JAN Board Certified, [place] Board [employer] and Rehabilitation (ABPMR) Board Certified, [place] Board of Electrodiagnostic Medicine (ABEM) CODIN [id number] x 2 MTDD
== END 2023-11-03 12:51 | disposition home or self-care (01) ==
LOC: HO.NEURO 12:50
PROVIDERS: PCP Internal Medicine; Visit Provider Internal Medicine
DX: G56.01 Carpal tunnel syndrome, right upper limb (principal)
CPT/HCPCS: 95886; 95911

== ENCOUNTER → 2023-11-03 12:55 | Outpatient (BNV) | payer MEDICARE, BC, SELFPAY | PROVIDERS: PCP Internal Medicine; Visit Provider Physical Medicine & Rehabilitation | DX: G56.03 Carpal tunnel syndrome, bilateral upper limbs (principal); G56.13 Other lesions of median nerve, bilateral upper limbs | CPT/HCPCS: 95886; 95911 ==

== ENCOUNTER 2023-11-12 14:41 | Outpatient (AMB) | payer MEDICARE, BC, SELFPAY ==
[2023-11-12 15:09] VITALS: BP 120/72; PULSE 74; O2SAT 98; BMI 34.7
--- NOTE | 2023-11-12 15:09 | AM.OFFWIN_ITS ---
Intake Vital Signs 11/12/23 15:09 Height 5 ft 3 in Weight 196 lb BMI 34.7 BP 120/72 Blood Pressure Location Lt brachial Position Sitting Pulse 74 Pulse Source Pulse Oximeter Pulse Oximetry (%) 98 Oxygen Delivery Method Room Air Intake Visit Reasons: EP ?UTI Intake Note: pt is here for possible uti Patient Tobacco Use Status: Never used Tobacco Allergies doxycycline Allergy (Verified 11/12/23 15:09) rash on face chest and arms Do you need a note to return to daycare/school/sports/work: No HPI HPI Comments History of Present Illness Details 68 y/o female patient [facility] with c/o urinary symptoms. Reports urinary frequency and dysuria for 2 weeks now. Reports bilateral lower back pain. Denies vaginal discharge or itching. Sexually active with 1 male partner. [facility] Medical History (Updated 09/01/23 @ 13:56 by Sandra Sierra MD) Knee pain, bilateral HTN (hypertension) Obese Osteopenia Annual physical exam Normal Pap smear Mammogram normal Hyperlipemia Pain and swelling of left ankle Osteoarthritis of knees, bilateral Tear meniscus knee Surgical History (Updated 09/01/23 @ 13:56 by Sandra Sierra MD) H/O colonoscopy No pertinent past surgical history Family History Father No problems noted. Mother HTN (hypertension) Stroke Son No problems noted. Son No problems noted. Daughter No problems noted. Social History Housing: House Alcohol intake: current Alcohol intake frequency: holidays/special occasions only Patient Tobacco Use Status: Never used Tobacco e-Cigarette/Vaping Use: Never Used Current occupational status: employed Cognitive needs: No Hearing needs: No Vision needs: No Review of Systems Const All systems reviewed & are unremarkable except as noted in HPI and below Physical Exam Vital Signs: Last Vital Signs Pulse 74 11/12/23 15:09 BP 120/72 11/12/23 15:09 BMI result Body Mass Index 34.7 Const General: comfortable and no acute distress Nutritional Appearance: obese Orientation/consciousness: patient oriented x3 General: Yes no CVA tenderness Back/Spine/Pelvis Back: no CVA tenderness Thoracic/Lumbar Spine: thoracic and lumbar spine normal to inspection, thoraco- lumbar ROM normal, No thoracic spinal tenderness and No lumbar spinal tenderness Neuro General: patient oriented x3, gait normal and moves all extremities Psych Speech and movement: Normal speech and movement present Attitude: cooperative Assessment & Plan Assessment & Plan (1) UTI symptoms: Code(s): R39.9 - Unspecified symptoms and signs involving the genitourinary system Plan: - Drink plenty of water - ??Overactive Bladder -OTC medicine for relief of urinary symptoms. Coding Level of Care Code Est Pt Level 3 (75276) Diagnoses UTI symptoms R39.9 Time Spent (min) 15
== END 2023-11-12 15:22 | disposition home or self-care (01) ==
PROVIDERS: PCP Internal Medicine; Visit Provider Nurse Practitioner Family
DX: R39.9 Unspecified symptoms and signs involving the genitourinary system (principal)
CPT/HCPCS: 99213

== ENCOUNTER 2023-12-08 09:02 | Outpatient (AMB) | payer MEDICARE, BC, SELFPAY ==
--- NOTE | 2023-12-08 09:18 | A.OFFVIS_ITS ---
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 Patient reports bilateral numbness and tingling for about two years with her right hand being the worse. States her hands become cold with holding items. She has difficulty with pinching and gripping items. Finds no support with use of a wrist brace. EMG done. No previous tx. 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 She states she has numbness and tingling in bilateral hands for 2 years which is worse on her right hand. Her pain, numbness and tingling is located at the first 3 digits and gets worse with gripping and pinching items. She experiences weakness with using her electric toothbrush and reports her hand goes cold while driving. Her pain is also aggravated at night where she needs to prop her fingers to a body pillow to provide her relief. She has been using a wrist brace which makes her pain worse.No previous treatment. She does not have a history of diabetes. [facility] Medical History (Updated 12/08/23 @ 19:19 by Steph Le PA-C) Knee pain, bilateral HTN (hypertension) Obese Osteopenia Annual physical exam Normal Pap smear Mammogram normal Hyperlipemia Pain and swelling of left ankle Osteoarthritis of knees, bilateral Tear meniscus knee Surgical History H/O colonoscopy No pertinent past surgical history Family History Father No problems noted. Mother HTN (hypertension) Stroke Son No problems noted. Son No problems noted. Daughter No problems noted. 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 Cognitive needs: No Hearing needs: No Vision needs: No Review of Systems Const All systems reviewed & are unremarkable except as noted in HPI and below Physical Exam Vital Signs: BMI result Body Mass Index 34.7 Const General: cooperative, healthy appearing, comfortable, no acute distress, well developed and alert Orientation/consciousness: patient oriented x3 HEENT Head: Yes normal to inspection, Yes normocephalic and Yes atraumatic Eyes General: appearance normal, both eyes and all related structures Neck Neck: Yes normal visual inspection and Yes no lymphadenopathy Resp Effort & Inspection: normal respiratory effort and able to speak in complete sentences Cardio Rate: regular rate Peripheral pulses: Peripheral pulses 2+ throughout GI Inspection: Yes normal to inspection Palpation (GI): Soft to palpation Skin General skin exam: no rashes or lesions noted Lesions: no lesions Rashes: no rashes Neuro General: patient oriented x3 Extrem Other: Bilateral wrist: Normal to inspection. Dense Numbness and tingling over the median nerve distribution of the right hand which is contstant. Left hand is int ermittent. Able to make a full fist and fully extend all fingers. Positive Tinel's bilaterally. Psych Appearance: grossly normal Mental Status: mental status grossly normal Results Reviewed Results Reviewed: IMPRESSION: 1. This is an abnormal study. 2. There is electrodiagnostic evidence for right moderate-severe and left mild median neuropathy at the wrist, consistent with carpal tunnel syndrome. 3. There is no electrodiagnostic evidence for ulnar neuropathy, brachial plexopathy, or cervical radiculopathy. Assessment & Plan Assessment & Plan (1) Carpal tunnel syndrome of right wrist: Code(s): G56.01 - Carpal tunnel syndrome, right upper limb (2) Carpal tunnel syndrome on left: Code(s): G56.02 - Carpal tunnel syndrome, left upper limb Plan We discussed options which include conservative vs operative treatment. Since the patient has been symptomatic for several months and it is impacting their daily life, the decision was made to undergo right carpal tunnel release. We discussed risk, benefits and alternatives. Risk including but not limited to infection, weakness, stiffness, ongoing numbness or tingling. The patient does understand all this and would like to proceed with right carpal tunnel release with Dr. Rascon. They will be booked accordingly. Patient Instructions: Scribed for Ta-Sandra Meuse, PA-C, by [facility] medical administrative, on 12/08/2023 at 9:00 AM AYAKA. Steph Torres PA-C, have personally reviewed and agree with the information entered by the scribe. Coding Level of Care Code New Pt Level 4 (80783) Diagnoses Carpal tunnel syndrome of right wrist G56.01 Carpal tunnel syndrome on left G56.02
[2023-12-08 09:24] VITALS: BMI 34.7
== END 2023-12-08 10:50 | disposition home or self-care (01) ==
PROVIDERS: PCP Internal Medicine; Visit Provider Physician Assistant
DX: G56.03 Carpal tunnel syndrome, bilateral upper limbs (principal)
CPT/HCPCS: 99204

== ENCOUNTER → 2023-12-08 09:02 | Outpatient (BNVA) | payer MEDICARE, BC, SELFPAY | PROVIDERS: PCP Internal Medicine; Visit Provider Physician Assistant | DX: G56.03 Carpal tunnel syndrome, bilateral upper limbs (principal) | CPT/HCPCS: 99202 ==

== ENCOUNTER 2023-12-31 10:12 | Outpatient (AMB) | payer MEDICARE, BC, SELFPAY ==
[2023-12-31 10:13] VITALS: BP 102/64; PULSE 68; O2SAT 98; BMI 34.5
--- NOTE | 2023-12-31 10:13 | MHC.PC.OV ---
Vital Signs 12/31/23 10:13 Height 5 ft 3 in Weight 195 lb BMI 34.5 BP 102/64 Blood Pressure Location Rt brachial Position Sitting Pulse 68 Pulse Source Pulse Oximeter Pulse Oximetry (%) 98 Oxygen Delivery Method Room Air Intake Visit Reasons: 4 Month follow up Intake Note: Pt is here today for 4 months follow up visit. Allergies doxycycline Allergy (Verified 12/31/23 10:13) rash on face chest and arms Medication List - Last Reconciled 12/31/23 by Sandra Sierra MD cholecalciferol (vitamin D3) 50 mcg PO DAILY gabapentin 100 mg PO BID meloxicam 15 mg PO DAILY PRN olmesartan 15 mg (3 x 5 mg) PO DAILY omega 3-nri-ohz-fish oil 1,000 mg (120 mg-180 mg) (Fish Oil) 1 cap PO DAILY pravastatin 20 mg PO DAILY Tobacco use date assessed: 12/31/23 Dental Screening Dental Screen Date: 09/01/23 HPI 4 Month follow up HPI Details Patient presents for the follow-up on hypertension and hyperlipidemia controlled on current medications. 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 Patient will have carpal tunnel surgery next month. Patient is going on anniversary trip to [place] in May. [facility] Medical History (Updated 12/08/23 @ 19:19 by Steph Le PA-C) Knee pain, bilateral HTN (hypertension) Obese Osteopenia Annual physical exam Normal Pap smear Mammogram normal Hyperlipemia Pain and swelling of left ankle Osteoarthritis of knees, bilateral Tear meniscus knee Surgical History H/O colonoscopy No pertinent past surgical history Family History Father No problems noted. Mother HTN (hypertension) Stroke Son No problems noted. Son No problems noted. Daughter No problems noted. Social History Housing: House Alcohol intake: current Alcohol intake frequency: holidays/special occasions only Patient Tobacco Use Status: Never used Tobacco e-Cigarette/Vaping Use: Never Used service: No Current occupational status: employed and retired Current occupation: right hand dominant Cognitive needs: No Hearing needs: No Vision needs: No Questionnaire PHQ-9 Over the last 2 weeks, how often have you been bothered by any of the following problems? 1. Little interest or pleasure in doing things: not at all 2. Feeling down, depressed, or hopeless: several days 3. Trouble falling or staying asleep, or sleeping too much: several days 4. Feeling tired or having little energy: not at all 5. Poor appetite or overeating: not at all 6. Feeling bad about yourself - or that you are a failure or have let yourself or your family down: not at all 7. Trouble concentrating on things, such as reading the newspaper or watching television: not at all 8. Moving or speaking so slowly that other people could have noticed. Or the opposite - being so fidgety or restless that you have been moving around a lot more than usual: not at all 9. Thoughts that you would be better off or of hurting yourself in some way: not at all Total score: 2 Depression Screening Interpretation: Negative Depression Screening Done: Yes Source: Developed by Drs. Gabe Scott, Eva Ashford, Dominic Gutierrez and colleagues, with an educational jay from [employer]. Thrive Questionnaire Date Thrive assessed: 12/31/23 I am a: Patient What is your living situation today?: I have a steady place to live Within the past 12 months, did the food you bought not last and you didn't have the money to get more?: Never true Within the past 12 months, did you worry whether your food would run out before you got money to buy more?: Never true Do you have trouble paying for medicines?: No Do you have trouble getting transportation to medical appointments?: No Do you have trouble paying your heating and electricity bill?: No Do you have trouble taking care of your child, family member or friend?: No Do you have trouble with day-to-day activities such as bathing, preparing meals, shopping, managing finances, etc.?: No Are you currently unemployed and looking for a job?: No Are you interested in more education?: No Please select the resources that you would like help with: None THRIVE Score: 0 AUDIT C Alcohol Use Questionnaire (AUDIT-C) 1. How often do you have a drink containing alcohol?: Monthly or less 2. How many drinks containing alcohol do you have on a typical day when you are drinking?: 1 or 2 3. How often do you have six or more drinks on one occasion?: Never Total Score: 1 SHADE-7 AMB Questionnaire SHADE-7 Date SHADE - 7 assessed: 12/31/23 Feeling nervous, anxious, or on edge: 0 = Not at all Not being able to stop or control worryin = Not at all Worrying too much about different things: 0 = Not at all Trouble relaxin = Not at all Being so restless that it is hard to sit still: 0 = Not at all Becoming easily annoyed or irritable: 0 = Not at all Feeling afraid as if something awful might happen: 0 = Not at all Total SHADE-7 score (0-4 normal; 5-9 mild; 10-14 moderate; 15-21 severe): 0 Source: Developed by Drs. Gabe Scott, Eva Ashford, Dominic Gutierrez and colleagues, with an educational jay from [employer]. Review of Systems Const All systems reviewed & are unremarkable except as noted in HPI and below Reports no additional complaints Eyes Reports no additional complaints ENT Reports no additional complaints Card Reports no additional complaints Resp Reports no additional complaints GI Reports no additional complaints Reports no additional complaints Physical exam (Primary Care) Vital Signs: Last Vital Signs Pulse 68 12/31/23 10:13 BP 102/64 12/31/23 10:13 Pulse Ox 98 12/31/23 10:13 Oxygen Delivery Method Room Air 12/31/23 10:13 BMI result Body Mass Index 34.5 Tobacco/Smoking Status: Tobacco use Status Tobacco use date assessed 12/31/23 12/31/23 10:18 Patient Tobacco Use Status Never used Tobacco 12/31/23 10:15 e-Cigarette/Vaping Use Never Used 12/31/23 10:15 PHQ-9: PHQ-9 Score PHQ-9: Total score 2 12/31/23 10:22 Depression Screening Interpretation: Negative Thrive Assessment: Date of Thrive Assessment Date Thrive assessed 12/31/23 12/31/23 10:22 Const General: no acute distress HENMT Head: Yes normal to inspection Ears: hearing grossly normal bilaterally Eyes General: appearance normal, both eyes and all related structures Neck Neck: Yes supple Resp Effort & Inspection: normal respiratory effort Auscultation: clear to auscultation bilaterally Cardio Rhythm: regular rhythm Heart sounds: S1 normal heart sound present and S2 normal heart sound present GI Inspection: Yes normal to inspection Palpation (GI): Soft to palpation Assessment and Plan Assessment & Plan (1) HTN (hypertension): Code(s): I10 - Essential (primary) hypertension Plan: Continue olmesartan (2) Hyperlipemia: Code(s): E78.5 - Hyperlipidemia, unspecified Plan: Continue statin (3) Carpal tunnel syndrome on left: Code(s): G56.02 - Carpal tunnel syndrome, left upper limb Plan: Follow-up with a hand surgeon (4) Carpal tunnel syndrome of right wrist: Code(s): G56.01 - Carpal tunnel syndrome, right upper limb Orders: Orders Complete Blood Count Auto Diff Today Lipid Panel Today Comprehensive [place]. Panel Fast Today Vitamin D 25-OH Total Today Coding Level of Care Code Est Pt Level 4 (11591) Diagnoses HTN (hypertension) I10 Hyperlipemia E78.5 Carpal tunnel syndrome on left G56.02 Carpal tunnel syndrome of right wrist G56.01
== END 2023-12-31 10:36 | disposition home or self-care (01) ==
PROVIDERS: PCP Internal Medicine; Visit Provider Internal Medicine
DX: I10 Essential (primary) hypertension (principal); E78.5 Hyperlipidemia, unspecified; G56.03 Carpal tunnel syndrome, bilateral upper limbs
CPT/HCPCS: 99214

== ENCOUNTER 2024-01-07 10:25 | Outpatient (REF) | payer MEDICARE, BC, SELFPAY ==
[2024-01-07 13:03] LABS: MANUAL DIFF FLAG NO
[2024-01-07 13:20] LABS: Basophils Absolute Auto 0.1 X10*3/uL (0.0-0.2); Basophils Percent Auto 0.7 % (0-2); Eosinophils Absolute Auto 0.1 X10*3/uL (0.0-0.4); Eosinophils Percent Auto 1.5 % (0-4); Hematocrit 46.9 % (37.0-47.0); Hemoglobin 15.4 g/dl (12.0-16.0); Imm Gran Abs Auto 0.03 X10*3/uL (0.00-0.03); Imm Gran Pct Auto 0.4 % (0.0-0.4); Lymphocytes Absolute Auto 2.2 X10*3/uL (1.2-4.9); Lymphocytes Percent Auto 29.9 % (20-40); Mean Corpuscular HGB Conc 32.8 g/dl (31.0-35.0); Mean Corpuscular Hemoglobin 29.8 pg (27.0-33.0); Mean Corpuscular Volume 90.7 fL (80.0-98.0); Mean Platelet Volume 10.6 fL (9.4-12.3); Monocytes Absolute Auto 0.6 X10*3/uL (0.1-1.2); Monocytes Percent Auto 8.5 % (2-11); Neutrophils Absolute Auto 4.3 x10*3/uL (2.0-8.3); Platelet Count 274 X10*3/uL (160-400); Red Blood Count 5.17 X10*6/uL (4.20-5.50); Red Cell Distribution Width 14.4 % (11.0-16.0); White Blood Count 7.2 X10*3/uL (4.8-10.8)
[2024-01-07 14:15] LABS: Alanine Aminotransferase 19 U/L (0-31); Albumin Level 4.1 g/dL (3.5-5.0); Alkaline Phosphatase 72 U/L (39-117); Anion Gap 11 (12-20); Aspartate Amino Transferase 21 U/L (5-31); Bilirubin Total 0.4 mg/dL (0.0-1.0); Blood Urea Nitrogen 13 mg/dL (9-16); Calcium 9.7 mg/dL (8.4-10.2); Carbon Dioxide 30 mmol/L (22-29); Chloride 106 mmol/L (96-108); Cholesterol 154 mg/dL (<200); Estimated Glomerular Filt Rate > 60; Glucose Fasting 105 mg/dL (60-99); HDL Cholesterol 37 mg/dL (>40); LDL Cholesterol Calculated 94 mg/dL (<100); Potassium 5.3 mmol/L (3.3-5.1); Sodium 142 mmol/L (135-145); Total Protein 7.1 g/dL (6.5-8.0); Triglycerides 118 mg/dL (<150); Vitamin D 25-OH Total 50.5 ng/mL (>30)
== END 2024-01-07 10:26 | disposition home or self-care (01) ==
LOC: HO.HMGCLDS 10:25
PROVIDERS: PCP Internal Medicine; Visit Provider Internal Medicine
DX: Z13.89 Encounter for screening for other disorder (principal)
CPT/HCPCS: 36415; 80053; 80061; 82306; 85025

== ENCOUNTER 2024-02-02 11:36 | Outpatient (REF) | payer MEDICARE, BC, SELFPAY ==
[2024-02-02 14:34] LABS: Anion Gap 13 (12-20); Blood Urea Nitrogen 16 mg/dL (9-16); Calcium 9.6 mg/dL (8.4-10.2); Carbon Dioxide 28 mmol/L (22-29); Chloride 105 mmol/L (96-108); Estimated Glomerular Filt Rate > 60; Glucose Random 112 mg/dL (60-115); Potassium 4.6 mmol/L (3.3-5.1); Sodium 141 mmol/L (135-145)
== END 2024-02-02 11:37 | disposition home or self-care (01) ==
LOC: HO.HMGCLDS 11:36
PROVIDERS: PCP Internal Medicine; Visit Provider Internal Medicine
DX: I10 Essential (primary) hypertension (principal)
CPT/HCPCS: 36415; 80048

== ENCOUNTER 2024-02-10 11:58 | Day surgery (SDC) | payer MEDICARE, BC, SELFPAY ==
--- NOTE | 2024-02-10 12:41 | W.PM.OPN ---
Operative Note Operative Note Date of Service: 02/10/24 Narrative: Preop diagnosis: 1. Right Carpal tunnel syndrome Postop diagnosis: same Procedure: 1. Right Carpal tunnel release Surgeon: Alda Rascon MD Anesthesia: local block using 1% lidocaine with epinephrine Findings: Thickened transverse carpal ligament. EBL: Less than 5 mL Specimens: None Complications: None Disposition: Brought to recovery room in stable condition Plan: Follow-up for 10-14 days for wound check and suture removal Indications: The patient is a 68 years old, with right carpal tunnel syndrome that has been unresponsive to nonoperative management. The risks and benefits of operative treatment including but not limited to risk of damage to blood vessels, nerves, tendons, infection, persistent pain, persistent symptoms, or possible need for additional surgery were discussed with the patient and the patient wishes to proceed with surgery. Procedure: Once consent was obtained a local block was performed using a combination of 1% lidocaine with epinephrine. The patient was then brought back to the operating suite and placed on the operative table in supine position. The right upper extremity was prepped and draped in a standard surgical fashion. Once assured that we had a good block, a 2.0 cm longitudinal incision was made centered over the carpal tunnel. The incision was made through the skin to the subcutaneous tissues using a #15 blade. Dissection was made down to the level of the transverse carpal ligament with care being taken to protect the palmar cutaneous nerve. Once the transverse carpal ligament was clearly visualized, a longitudinal incision was made in the transverse carpal ligament 1st using a #15 blade, then using tenotomy scissors under direct visualization. Care was taken to look for and protect the motor branch of the median nerve when seen in this area. Once satisfied with our carpal tunnel release the wound was copiously irrigated with normal saline and hemostasis was obtained with a brief period of local pressure. The skin edges were reapproximated with some 5.0 nylon suture material and a sterile dressing was applied. The patient appears to have tolerated the procedure well and with no complications. All digits were well vascularized at the conclusion of the case.
[2024-02-10 13:43] VITALS: BMI 38.4
--- NOTE | 2024-02-10 14:06 | MHC.SHP ---
Pre-Procedural Eval Section A - 24 Hr Update-Section A only Date of Service: 02/10/24 The patient is an INPATIENT: No Changes since office visit: No Cold of Flu in the past 2 weeks, No New Medical Problems, No Changes in Medication and No Patient answered all questions The patient has been examined within 24 hours of the surgical procedure. The History & Physical has been completed within 30 days and I have reviewed it.: Yes Section B - Complete if H&P > 30 days Chief Complaint: Carpal tunnel syndrome, right upper limb Allergies: Allergies Allergy/AdvReac Type Severity Reaction Status Date / Time doxycycline Allergy rash on Verified 02/10/24 13:44 face chest and arms Exam Exam Comment: Right carpal tunnel syndrome Plan Diagnosis/Plan: Unchanged I have reviewed the history and physical and performed a pertinent physical examination on my patient. No changes have occurred unless specified. Time Spent With Patient Time: Total time managing care of this patient today ____ minutes.
[2024-02-10 16:50] VITALS: BP 137/63; PULSE 75; RESP 16; TEMP 36.1; O2SAT 99
== END 2024-02-10 17:06 | disposition home or self-care (01) ==
PROVIDERS: PCP Internal Medicine; Visit Provider Orthopaedic Surgery
PROC: (CPT 64721; principal; 2024-02-10 14:40)
DX: G56.01 Carpal tunnel syndrome, right upper limb (principal); I10 Essential (primary) hypertension; Z88.1 Allergy status to other antibiotic agents
CPT/HCPCS: 64721; J0171

== ENCOUNTER → 2024-02-10 11:58 | Outpatient (BNV) | payer MEDICARE, BC, SELFPAY | PROVIDERS: PCP Internal Medicine; Visit Provider Orthopaedic Surgery | DX: G56.01 Carpal tunnel syndrome, right upper limb (principal) | CPT/HCPCS: 64721 ==

== ENCOUNTER 2024-02-23 14:30 | Outpatient (AMB) | payer MEDICARE, BC, SELFPAY ==
--- NOTE | 2024-02-23 14:49 | MHC.OFFVIS ---
Vital Signs 02/23/24 14:51 Height 5 ft 1 in Weight 200 lb BMI 37.8 Handedness Right Intake Visit Reasons: PO RT CTR 02/10/24 AR Intake Note: Ana María is a right hand dominant 68 year old female who presents today post operatively, s/p Right CTR 02/10/24 AR. Patient reports she is doing well and no longer having numbness and tingling. She has mild tenderness around her incision but other than that she has no other concerns. Sutures removed and steri strips applied. Allergies doxycycline Allergy (Verified 02/23/24 14:53) rash on face chest and arms HPI HPI PO RT CTR 02/10/24 AR: Details: Ana María is a 68 year old right hand dominant woman who presents S/P right carpal tunnel release, DOS: 02/10/24. She says she is doing well, with some mild tenderness about her incision. Her sensation is improved and now normal, and she has good resolution of her nighttime symptoms, which she is happy about. She reports feeling some weakness in her fingers still, but this has been improving. She has left carpal tunnel syndrome. She complains of numbness in the median nerve distribution. Symptoms intermittent, worse at night. She says this side is not as bad as her right was, and does not want to discuss surgery at this time. [facility] Medical History Knee pain, bilateral HTN (hypertension) Obese Osteopenia Annual physical exam Normal Pap smear Mammogram normal Hyperlipemia Pain and swelling of left ankle Osteoarthritis of knees, bilateral Tear meniscus knee Surgical History H/O colonoscopy No pertinent past surgical history Family History Father No problems noted. Mother HTN (hypertension) Stroke Son No problems noted. Son No problems noted. Daughter No problems noted. Social History Housing: House Alcohol intake: current Alcohol intake frequency: holidays/special occasions only Patient Tobacco Use Status: Never used Tobacco e-Cigarette/Vaping Use: Never Used service: No Current occupational status: employed and retired Current occupation: right hand dominant Cognitive needs: No Hearing needs: No Vision needs: No Review of Systems Const All systems reviewed & are unremarkable except as noted in HPI and below Physical Exam Vital Signs: BMI result Body Mass Index 37.8 Const General: no acute distress and alert Orientation/consciousness: patient oriented x3 Neuro General: patient oriented x3 Extrem Other: The patient was alert oriented and in no acute distress The incision is healing well with no erythema drainage or evidence of infection. Sutures removed and Steri-Strips applied She can make a fist and extend all her digits Sensation is intact and now normal in the right median nerve distribution. Cap refill is brisk Nerve Conduction study: IMPRESSION: 1. This is an abnormal study. 2. There is electrodiagnostic evidence for right moderate-severe and left mild median neuropathy at the wrist, consistent with carpal tunnel syndrome. 3. There is no electrodiagnostic evidence for ulnar neuropathy, brachial plexopathy, or cervical radiculopathy. Gemma Reid MD, JAN 11/03/23 Psych Appearance: grossly normal Affect: normal affect Attitude: cooperative Assessment & Plan Assessment & Plan (1) Carpal tunnel syndrome of right wrist: Code(s): G56.01 - Carpal tunnel syndrome, right upper limb Category: Medical (2) Carpal tunnel syndrome on left: Code(s): G56.02 - Carpal tunnel syndrome, left upper limb Category: Medical Plan Assessment & Plan: 1. Right carpal tunnel syndrome, S/P release DOS: 02/10/24 Pre-operative with dense numbness Now with normal sensation and good resolution of her nighttime symptoms The patient appears to be doing well post-operatively I educated her about the post-operative course I discussed activity modifications, she is to lift nothing heavier than a cellphone for the next two weeks She will perform gentle ROM exercises at home She should avoid any underwater activities for the next 5 days She should gently massage about the incision site to reduce the risk of hypersensitivity 2. Left carpal tunnel syndrome, mild Symptoms intermittent and occasional, worse at night She is not interested in discussing surgery at this time She says this side was nowhere near as bad as her right side was prior to surgery She will follow up prn Scribed for Alda Rascon MD by Gage Prado medical appliance maker, on 02/23/24 at 3:15 PM, EST. Coding Level of Care Code Global (67174) Diagnoses Carpal tunnel syndrome of right wrist G56.01 Carpal tunnel syndrome on left G56.02
[2024-02-23 14:51] VITALS: BMI 37.8
== END 2024-02-23 15:23 | disposition home or self-care (01) ==
PROVIDERS: PCP Internal Medicine; Visit Provider Orthopaedic Surgery
DX: G56.03 Carpal tunnel syndrome, bilateral upper limbs (principal)
CPT/HCPCS: 99024

== ENCOUNTER → 2024-02-23 14:30 | Outpatient (BNVA) | payer MEDICARE, BC, SELFPAY | PROVIDERS: PCP Internal Medicine; Visit Provider Orthopaedic Surgery | DX: G56.02 Carpal tunnel syndrome, left upper limb (principal); Z98.890 Other specified postprocedural states | CPT/HCPCS: 99212 ==

== ENCOUNTER 2024-03-06 13:44 | Outpatient (AMB) | payer MEDICARE, BC, SELFPAY ==
--- NOTE | 2024-03-06 14:01 | A.OFFPC_ITS ---
Vital Signs 03/06/24 14:03 Height 5 ft 1 in Weight 191 lb BMI 36.1 BP 104/70 Blood Pressure Location Lt brachial Position Sitting Pulse 97 Pulse Source Pulse Oximeter Pulse Oximetry (%) 98 Oxygen Delivery Method Room Air Intake Visit Reasons: BloodPressureIssues Intake Note: Pt is here today for blood pressure concerns. Too low. Dizziness. Stopped med 3 wks ago Allergies doxycycline Allergy (Verified 03/06/24 14:01) rash on face chest and arms Medication List - Last Reconciled 03/06/24 by Sandra Sierra MD cholecalciferol (vitamin D3) 50 mcg PO DAILY gabapentin 100 mg PO BID meloxicam 15 mg PO DAILY PRN omega 0-iql-exq-fish oil 1,000 mg (120 mg-180 mg) (Fish Oil) 1 cap PO DAILY pravastatin 20 mg PO DAILY Tobacco use date assessed: 03/06/24 Dental Screening Dental Screen Date: 09/01/23 HPI BloodPressureIssues HPI Details Patient presents with a complaint of recurrent episodes of constipation and left lower quadrant abdominal pain lasting up to 4 days not related to change in the diet or activity level. Patient has been trying to take Colace with some improvement. She reports episodes of difficulty emptying bladder when constipated. She denies nausea vomiting fever or chills. Patient has stopped taking olmesartan and has been monitoring her blood pressure regularly with the readings between 100/60 to 120/80. [facility] Medical History Knee pain, bilateral HTN (hypertension) Obese Osteopenia Annual physical exam Normal Pap smear Mammogram normal Hyperlipemia Pain and swelling of left ankle Osteoarthritis of knees, bilateral Tear meniscus knee Surgical History H/O colonoscopy No pertinent past surgical history Family History Father No problems noted. Mother HTN (hypertension) Stroke Son No problems noted. Son No problems noted. Daughter No problems noted. Social History Housing: House Alcohol intake: current Alcohol intake frequency: holidays/special occasions only Patient Tobacco Use Status: Never used Tobacco e-Cigarette/Vaping Use: Never Used service: No Current occupational status: employed and retired Current occupation: right hand dominant Cognitive needs: No Hearing needs: No Vision needs: No Questionnaire Thrive Questionnaire Date Thrive assessed: 12/31/23 SHADE-7 AMB Questionnaire SHADE-7 Date SHADE - 7 assessed: 12/31/23 Source: Developed by Drs. Gabe Scott, Eva Ashford, Dominic Gutierrez and colleagues, with an educational jay from [employer]. Review of Systems Const All systems reviewed & are unremarkable except as noted in HPI and below Card Reports no additional complaints Resp Reports no additional complaints GI Reports no additional complaints Reports no additional complaints Physical exam (Primary Care) Vital Signs: Last Vital Signs Pulse 97 03/06/24 14:03 BP 104/70 03/06/24 14:03 Pulse Ox 98 03/06/24 14:03 Oxygen Delivery Method Room Air 03/06/24 14:03 BMI result Body Mass Index 36.1 Tobacco/Smoking Status: Tobacco use Status Tobacco use date assessed 03/06/24 03/06/24 14:07 Patient Tobacco Use Status Never used Tobacco 03/06/24 14:07 e-Cigarette/Vaping Use Never Used 03/06/24 14:07 Thrive Assessment: Date of Thrive Assessment Date Thrive assessed 12/31/23 03/06/24 14:07 Const General: no acute distress HENMT Mouth: Normal oral and palatal mucosa present Neck Neck: Yes supple Resp Effort & Inspection: normal respiratory effort Auscultation: clear to auscultation bilaterally Cardio Rhythm: regular rhythm Heart sounds: S1 normal heart sound present and S2 normal heart sound present GI Inspection: Yes normal to inspection Palpation (GI): Soft to palpation, Tenderness to palpation present (GI) in the LLQ and No Rebound tenderness present Percussion: Yes normal to percussion Auscultation: normal bowel sounds Assessment and Plan Assessment & Plan (1) Abdominal pain: Code(s): R10.9 - Unspecified abdominal pain Plan: For the recurrent episodes of constipation and left lower quadrant abdominal pain CT of the abdomen pelvis will be obtained to evaluate for diverticulitis or pelvic mass. Patient was advised to continue high-fiber diet increase fluid intake continue to take Flonase or MiraLax on a regular basis. Follow-up in 1 month (2) HTN (hypertension): Comment: Off blood pressure medication Code(s): I10 - Essential (primary) hypertension Plan: Continue low-sodium diet increase physical activity weight loss discussed with the patient she will continue to monitor her blood pressure regularly Orders: Orders Creatinine Today K59.00 - Constipation, unspecified, R10.9 - Unspecified abdominal pain Blood Urea Nitrogen Today K59.00 - Constipation, unspecified, R10.9 - Unspecified abdominal pain CT abdomen pelvis w IV con Today R10.32 - Left lower quadrant pain Coding Level of Care Code Est Pt Level 3 (18188) Diagnoses Abdominal pain R10.9 HTN (hypertension) I10
[2024-03-06 14:03] VITALS: BP 104/70; PULSE 97; O2SAT 98; BMI 36.1
== END 2024-03-06 14:46 | disposition home or self-care (01) ==
PROVIDERS: PCP Internal Medicine; Visit Provider Internal Medicine
DX: R10.9 Unspecified abdominal pain (principal); I10 Essential (primary) hypertension
CPT/HCPCS: 99213

== ENCOUNTER 2024-03-08 08:25 | Outpatient (REF) | payer MEDICARE, BC, SELFPAY ==
--- NOTE | ~2024-03-08 | CT_ITS ---
EXAMINATION: CT ABDOMEN AND PELVIS WITH CONTRAST CLINICAL INFORMATION: Left lower quadrant pain. COMPARISON: None available. TECHNIQUE: Multidetector volumetric images were obtained from the superior aspect of the liver through the pubic symphysis following administration 85 mL of Omnipaque 350 intravenous contrast. Sagittal and coronal reformatted images were obtained on the technologist's workstation. Oral contrast was given. This CT examination was performed using dose optimization techniques as appropriate, variously including the following: *Automated exposure control *Adjustment of mA and/or kV according to patient size (this includes techniques or standardized protocols for targeted exams where dose is matched to indication/reason for exam; i.e. extremities or head) *Use of iterative reconstruction technique DLP: 706 mGy-cm FINDINGS: LOCALIZER IMAGES: Obese body habitus. Normal bowel gas pattern. LUNG BASES: The visualized lung bases have mosaic attenuation which could represent air trapping phenomenon from inflammation of airways. HEPATOBILIARY: Small 0.8 cm cyst in the lateral right hepatic dome. No suspicious liver lesion. Gallbladder has a normal appearance. No dilated bile ducts. PANCREAS: No edema, pancreatic ductal dilatation or mass. SPLEEN: Normal. ADRENAL GLANDS: Normal. KIDNEYS AND URETERS: Kidneys are normal in size and enhance symmetrically. No nephrolithiasis, hydronephrosis or perinephric edema. 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 BLADDER: Underdistended and grossly normal. BOWEL AND PERITONEUM: No dilated bowel loops. The appendix is normal. Multiple diverticula of the descending and sigmoid colon. There is focal fat stranding of the sigmoid mesentery along with trace amount of fluid and a few very small gas bubbles. Findings consistent with acute sigmoid diverticulitis and mild microperforation. ABDOMINAL WALL: Unremarkable. VASCULATURE: There is atherosclerotic calcification of the abdominal aorta without aneurysm. LYMPH NODES: No pathologic sized lymph nodes in the abdomen or pelvis. No inguinal lymphadenopathy. PELVIC VISCERA: Unremarkable. MUSCULOSKELETAL: No acute findings within the visualized degenerated spine. Facet osteoarthritis and mild grade 1 anterolisthesis at L3-L4. Hemangioma of the T11 vertebral body. No suspicious osseous lesions. 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 CT/CT abdomen pelvis w IV con IMPRESSION: Acute sigmoid diverticulitis with likely recent microperforation of an inflamed diverticulum.
[2024-03-08 11:01] LABS: Blood Urea Nitrogen 12 mg/dL (9-16); Estimated Glomerular Filt Rate > 60
[2024-03-08] MEDS: Barium Sulfate Oral (Berry) 450 ML ORAL.SUSP 900 ML PO (11:18)
[2024-03-08] MEDS: iohexoL 350 MG/ML 100 ML INFUS..BTL IV (11:19)
== END 2024-03-08 08:26 | disposition home or self-care (01) ==
LOC: HO.CT 08:25
PROVIDERS: PCP Internal Medicine; Visit Provider Internal Medicine
DX: R10.32 Left lower quadrant pain (principal); K59.00 Constipation, unspecified
CPT/HCPCS: 36415; 74177; 82565; 84520; Q9967

== ENCOUNTER 2024-04-03 14:06 | Outpatient (AMB) | payer MEDICARE, BC, SELFPAY ==
--- NOTE | 2024-04-03 14:07 | A.OFFPC_ITS ---
Vital Signs 04/03/24 14:08 Height 5 ft 1 in Weight 192 lb 2 oz BMI 36.3 BP 125/78 Blood Pressure Location Rt brachial Position Standing Pulse 94 Pulse Source Pulse Oximeter Pulse Oximetry (%) 97 Oxygen Delivery Method Room Air Intake Visit Reasons: 4Wk f/U CT Intake Note: Patient is here today for 4 week follow up Allergies doxycycline Allergy (Verified 04/03/24 14:08) rash on face chest and arms Medication List - Last Reconciled 04/03/24 by Sandra Sierra MD cholecalciferol (vitamin D3) 50 mcg PO DAILY gabapentin 100 mg PO BID meloxicam 15 mg PO DAILY PRN omega 9-twf-wzx-fish oil 1,000 mg (120 mg-180 mg) (Fish Oil) 1 cap PO DAILY pravastatin 20 mg PO DAILY Tobacco use date assessed: 04/03/24 Fall risk assessment: No Falls in past year Last assessed Fall Risk: 04/03/24 Dental Screening Dental Screen Date: 04/03/24 Did you have a dental visit in the last 12 months?: Yes Did you have a dental problem in the last 6 months where you did not have access to dental care?: No Was dental information given to patient?: Patient has dentist HPI 4Wk f/U CT HPI Details Pt presents for f/u diverticulosis. Pt reports intermittent constipations and bloating. Pt has been taking Colace with some relief. Pt denies melena, hematochezia, fever, chills. PFSH Medical History Knee pain, bilateral HTN (hypertension) Obese Osteopenia Annual physical exam Normal Pap smear Mammogram normal Hyperlipemia Pain and swelling of left ankle Osteoarthritis of knees, bilateral Tear meniscus knee Surgical History H/O colonoscopy No pertinent past surgical history Family History Father No problems noted. Mother HTN (hypertension) Stroke Son No problems noted. Son No problems noted. Daughter No problems noted. Social History Housing: House Alcohol intake: current Alcohol intake frequency: holidays/special occasions only Patient Tobacco Use Status: Never used Tobacco e-Cigarette/Vaping Use: Never Used service: No Current occupational status: employed and retired Current occupation: right hand dominant Cognitive needs: No Hearing needs: No Vision needs: No Questionnaire PHQ-9 Over the last 2 weeks, how often have you been bothered by any of the following problems? 1. Little interest or pleasure in doing things: not at all 2. Feeling down, depressed, or hopeless: not at all 3. Trouble falling or staying asleep, or sleeping too much: not at all 4. Feeling tired or having little energy: not at all 5. Poor appetite or overeating: not at all 6. Feeling bad about yourself - or that you are a failure or have let yourself or your family down: not at all 7. Trouble concentrating on things, such as reading the newspaper or watching television: not at all 8. Moving or speaking so slowly that other people could have noticed. Or the opposite - being so fidgety or restless that you have been moving around a lot more than usual: not at all 9. Thoughts that you would be better off or of hurting yourself in some way: not at all Total score: 0 Depression Screening Interpretation: Negative Depression Screening Done: Yes 17010 - PHQ-9 Billing: Yes Source: Developed by Drs. Gabe Scott, Eva Ashford, Dominic Gutierrez and colleagues, with an educational jay from [employer]. Thrive Questionnaire Date Thrive assessed: 04/03/24 I am a: Patient What is your living situation today?: I have a steady place to live Within the past 12 months, did the food you bought not last and you didn't have the money to get more?: Never true Within the past 12 months, did you worry whether your food would run out before you got money to buy more?: Never true Do you have trouble paying for medicines?: No Do you have trouble getting transportation to medical appointments?: No Do you have trouble paying your heating and electricity bill?: No Do you have trouble taking care of your child, family member or friend?: No Do you have trouble with day-to-day activities such as bathing, preparing meals, shopping, managing finances, etc.?: No Are you currently unemployed and looking for a job?: No Are you interested in more education?: No Please select the resources that you would like help with: Housing/Custodial Currently or been in a relationship where the following occur: No concerns reported THRIVE Score: 0 AUDIT C Alcohol Use Questionnaire (AUDIT-C) 1. How often do you have a drink containing alcohol?: Monthly or less 2. How many drinks containing alcohol do you have on a typical day when you are drinking?: 1 or 2 3. How often do you have six or more drinks on one occasion?: Never Total Score: 1 Score Reviewed/Action Taken: Yes SHADE-7 AMB Questionnaire SHADE-7 Date SHADE - 7 assessed: 04/03/24 Feeling nervous, anxious, or on edge: 0 = Not at all Not being able to stop or control worryin = Not at all Worrying too much about different things: 0 = Not at all Trouble relaxin = Not at all Being so restless that it is hard to sit still: 0 = Not at all Becoming easily annoyed or irritable: 0 = Not at all Feeling afraid as if something awful might happen: 0 = Not at all Total SHADE-7 score (0-4 normal; 5-9 mild; 10-14 moderate; 15-21 severe): 0 Source: Developed by Drs. Gabe Scott, Eva Ashford, Dominic Gutierrez and colleagues, with an educational jay from [employer]. SHADE-7 Assessment Billing SHADE-7 Assessment Tool: SHADE-7 Assessment 57026 Review of Systems Const All systems reviewed & are unremarkable except as noted in HPI and below Eyes Reports no additional complaints ENT Reports no additional complaints Card Reports no additional complaints Resp Reports no additional complaints GI Reports no additional complaints Reports no additional complaints Physical exam (Primary Care) Vital Signs: Last Vital Signs Pulse 94 04/03/24 14:08 Pulse Ox 97 04/03/24 14:08 Oxygen Delivery Method Room Air 04/03/24 14:08 BMI result Body Mass Index 36.3 Tobacco/Smoking Status: Tobacco use Status Tobacco use date assessed 04/03/24 04/03/24 14:09 Patient Tobacco Use Status Never used Tobacco 04/03/24 14:09 e-Cigarette/Vaping Use Never Used 04/03/24 14:09 PHQ-9: PHQ-9 Score PHQ-9: Total score 0 04/03/24 14:09 Depression Screening Interpretation: Negative Thrive Assessment: Date of Thrive Assessment Date Thrive assessed 04/03/24 04/03/24 14:09 Currently or been in a relationship where the following occur: No concerns reported Const General: no acute distress HENMT Head: Yes normal to inspection Eyes General: appearance normal, both eyes and all related structures Resp Effort & Inspection: normal respiratory effort Auscultation: clear to auscultation bilaterally Cardio Rhythm: regular rhythm Heart sounds: S1 normal heart sound present and S2 normal heart sound present GI Inspection: Yes normal to inspection Palpation (GI): Soft to palpation and nontender Percussion: Yes normal to percussion Auscultation: normal bowel sounds Assessment and Plan Assessment & Plan (1) Constipation: Code(s): K59.00 - Constipation, unspecified Plan: cont Colace (2) Diverticulosis: Code(s): K57.90 - Diverticulosis of intestine, part unspecified, without perforation or abscess without bleeding Plan: High-fiber diet, increase fluid intake and physical activity discussed with the patient. Dicyclomine will be tried for bloating and IBS Orders: Orders Comprehensive [place]. Panel Fast 5 Months E78.5 - Hyperlipidemia, unspecified, Z00.00 - Encounter for general adult medical examination without abnormal findings UA w Microscopic 5 Months E78.5 - Hyperlipidemia, unspecified, Z00.00 - Encounter for general adult medical examination without abnormal findings Complete Blood Count Auto Diff 5 Months E78.5 - Hyperlipidemia, unspecified, Z00.00 - Encounter for general adult medical examination without abnormal findings Lipid Panel 5 Months E78.5 - Hyperlipidemia, unspecified, Z00.00 - Encounter for general adult medical examination without abnormal findings TSH reflex Free T4 5 Months E78.5 - Hyperlipidemia, unspecified, Z00.00 - Encounter for general adult medical examination without abnormal findings Medications: New dicyclomine 10 mg PO TID 90 caps 0RF Coding Level of Care Code Est Pt Level 3 (93156) Diagnoses Constipation K59.00 Diverticulosis K57.90 Additional Codes SHADE-7 Assessment Billing - SHADE-7 Assessment Tool: SHADE-7 Assessment 44033 ([id number])
[2024-04-03 14:08] VITALS: BP 125/78; PULSE 94; O2SAT 97; BMI 36.3
== END 2024-04-03 14:58 | disposition home or self-care (01) ==
PROVIDERS: PCP Internal Medicine; Visit Provider Internal Medicine
DX: K59.00 Constipation, unspecified (principal); K57.90 Diverticulosis of intestine, part unspecified, without perforation or abscess without bleeding
CPT/HCPCS: 99213

== ENCOUNTER 2024-07-06 14:09 | Outpatient (AMB) | payer MEDICARE, BC, SELFPAY ==
--- NOTE | 2024-07-06 14:16 | AM.OFFWIN_ITS ---
Intake Vital Signs 07/06/24 14:20 Height 5 ft 1 in Weight 194 lb BMI 36.7 BP 120/90 H Blood Pressure Location Rt brachial Position Sitting Pulse 92 Pulse Source Pulse Oximeter Pulse Oximetry (%) 98 Oxygen Delivery Method Room Air Intake Visit Reasons: EP RT leg in pain n is now limping Intake Note: Patient here for right hip pain that has been present for 3 weeks Patient Tobacco Use Status: Never used Tobacco Allergies doxycycline Allergy (Verified 07/06/24 14:21) rash on face chest and arms Do you need a note to return to daycare/school/sports/work: No HPI HPI Comments History of Present Illness Details Patient is a 68-year-old female complaining of right-sided hip pain for the last 3 weeks as well as an upper respiratory infection that she got 3 weeks ago but seems to be improving.. She tells me her and her went to [place] for the [place]th anniversary, she ended up getting COVID while she was there and she has been coughing with chest congestion but has mostly improved but she is wondering if I can listen to her lungs today to ensure they sound clear. She denies any current fevers, shortness of breath or wheezing. She tells me she has arthritis and does take meloxicam sometimes but she was told not to take it on a daily basis. She took it before they left but they did a lot of walking each day at [place] and she states her hip pain has not improved despite rest and ice. She has not taken it since she got back from [place], she has been taking gabapentin with no relief in her symptoms. She describes the pain as a throbbing aching pain on the side of her hip as well as in the groin. The pain is worse when she walks. She denies any sharp shooting pains down her buttocks or the backs of her legs. [facility] Medical History (Updated 07/06/24 @ 14:44 by Kyra Iverson PA-C) Knee pain, bilateral Obese Osteopenia Annual physical exam Normal Pap smear Mammogram normal Hyperlipemia Pain and swelling of left ankle Osteoarthritis of knees, bilateral Tear meniscus knee Surgical History H/O colonoscopy No pertinent past surgical history Family History Father No problems noted. Mother HTN (hypertension) Stroke Son No problems noted. Son No problems noted. Daughter No problems noted. Social History Housing: House Alcohol intake: current Alcohol intake frequency: holidays/special occasions only Patient Tobacco Use Status: Never used Tobacco e-Cigarette/Vaping Use: Never Used service: No Current occupational status: employed and retired Current occupation: right hand dominant Cognitive needs: No Hearing needs: No Vision needs: No Review of Systems Const All systems reviewed & are unremarkable except as noted in HPI and below Physical Exam Vital Signs: Last Vital Signs Pulse 92 07/06/24 14:20 BP 120/90 H 07/06/24 14:20 Pulse Ox 98 07/06/24 14:20 Oxygen Delivery Method Room Air 07/06/24 14:20 BMI result Body Mass Index 36.7 Const General: cooperative, healthy appearing, comfortable and no acute distress Orientation/consciousness: patient oriented x3 Limitations: no limitations HEENT Head: Yes normal to inspection Resp Effort & Inspection: normal respiratory effort and able to speak in complete sentences Auscultation: clear to auscultation bilaterally Cardio Rate: regular rate Rhythm: regular rhythm Heart sounds: S1 normal heart sound present and S2 normal heart sound present Back/Spine/Pelvis Thoracic/Lumbar Spine: straight leg raise negative bilaterally Pelvis: pain with lateral compression (right sided lateral TTP) Neuro General: patient oriented x3 Assessment & Plan Assessment & Plan (1) Hip pain, right: Code(s): M25.551 - Pain in right hip Plan: Recommended she take a 5 day burst of the meloxicam and prednisone to try to get her hip pain under control, recommended ice and rest. No indication for an x- ray, recommended if pain does not improve over the next 7-10 days, she should follow up with her primary care doctor. (2) COVID-19: Code(s): U07.1 - COVID-19 Plan: Vital signs are stable, patient well-appearing and lung sounds are clear, looks like she is recovering from her COVID very well. (3) Bursitis of hip, right: Code(s): M70.71 - Other bursitis of hip, right hip Qualifiers: Hip bursitis location: trochanteric bursitis Qualified Code(s): M70.61 - Trochanteric bursitis, right hip Plan: Recommended she take a 5 day burst of the meloxicam and prednisone to try to get her hip pain under control, recommended ice and rest. Plan See above Medications: New meloxicam 15 mg PO DAILY 7 tabs 0RF prednisone 40 mg (2 x 20 mg) PO DAILY 10 tabs 0RF Coding Level of Care Code Est Pt Level 4 (12470) Diagnoses Hip pain, right M25.551 COVID-19 U07.1 Trochanteric bursitis of right hip M70.61 Hip bursitis location: trochanteric bursitis
[2024-07-06 14:20] VITALS: BP 120/90; PULSE 92; O2SAT 98; BMI 36.7
== END 2024-07-06 15:00 | disposition home or self-care (01) ==
PROVIDERS: PCP Internal Medicine; Visit Provider Physician Assistant
DX: M25.551 Pain in right hip (principal); U07.1 COVID-19; M70.61 Trochanteric bursitis, right hip

== ENCOUNTER → 2024-07-06 14:09 | Outpatient (BNVA) | payer MEDICARE, BC, SELFPAY | PROVIDERS: PCP Internal Medicine; Visit Provider Physician Assistant | DX: M25.551 Pain in right hip (principal); U07.1 COVID-19; M70.61 Trochanteric bursitis, right hip | CPT/HCPCS: 99212 ==

== ENCOUNTER 2024-07-24 10:57 | Outpatient (REF) | payer MEDICARE, BC, SELFPAY | END 2024-07-24 10:58 | disposition home or self-care (01) | LOC: HO.HMGCX 10:57 | PROVIDERS: PCP Internal Medicine; Visit Provider Internal Medicine | DX: M70.61 Trochanteric bursitis, right hip (principal) | CPT/HCPCS: 73522; 99212 ==

== ENCOUNTER 2024-07-24 10:57 | Outpatient (AMB) | payer MEDICARE, BC, SELFPAY ==
[2024-07-24 11:02] VITALS: BP 118/72; PULSE 90; O2SAT 97; BMI 36.3
--- NOTE | 2024-07-24 11:02 | A.OFFPC_ITS ---
Vital Signs 07/24/24 11:02 Height 5 ft 1 in Weight 192 lb BMI 36.3 BP 118/72 Blood Pressure Location Lt brachial Position Sitting Pulse 90 Pulse Source Pulse Oximeter Pulse Oximetry (%) 97 Oxygen Delivery Method Room Air Intake Visit Reasons: Pain in Right Hip - Urgent Care Follow Up Intake Note: Pt is here today for a sick visit. Pt c/o pain in R hip and back pain on the same side. Pt also c/o neck pain. Allergies doxycycline Allergy (Verified 07/24/24 11:07) rash on face chest and arms Tobacco use date assessed: 07/24/24 Fall risk assessment: No Falls in past year Last assessed Fall Risk: 07/24/24 Dental Screening Dental Screen Date: 04/03/24 HPI Pain in Right Hip - Urgent Care Follow Up HPI Details Patient presents complaining of persistent right groin and lateral thigh pain worse when walking for 1 month. She denies pain at rest. The symptoms started after patient went to [place] and walked long distance. She denies any weakness or numbness in extremities. Patient has a chronic lower back pain and has been taking gabapentin and meloxicam regularly. Patient was seen in walk in 10 days ago and prescribed prednisone 40 mg for 10 days and meloxicam without significant relief. [facility] Medical History (Updated 07/06/24 @ 14:44 by Kyra Iverson PA-C) Knee pain, bilateral Obese Osteopenia Annual physical exam Normal Pap smear Mammogram normal Hyperlipemia Pain and swelling of left ankle Osteoarthritis of knees, bilateral Tear meniscus knee Surgical History H/O colonoscopy No pertinent past surgical history Family History Father No problems noted. Mother HTN (hypertension) Stroke Son No problems noted. Son No problems noted. Daughter No problems noted. Social History Housing: House Alcohol intake: current Alcohol intake frequency: holidays/special occasions only Patient Tobacco Use Status: Never used Tobacco e-Cigarette/Vaping Use: Never Used service: No Current occupational status: employed and retired Current occupation: right hand dominant Cognitive needs: No Hearing needs: No Vision needs: No Questionnaire Thrive Questionnaire Date Thrive assessed: 03/27/24 I am a: Patient What is your living situation today?: I have a steady place to live Within the past 12 months, did the food you bought not last and you didn't have the money to get more?: Never true Within the past 12 months, did you worry whether your food would run out before you got money to buy more?: Never true Do you have trouble paying for medicines?: No Do you have trouble getting transportation to medical appointments?: No Do you have trouble paying your heating and electricity bill?: No Do you have trouble taking care of your child, family member or friend?: No Do you have trouble with day-to-day activities such as bathing, preparing meals, shopping, managing finances, etc.?: No Are you currently unemployed and looking for a job?: No Are you interested in more education?: No Please select the resources that you would like help with: None Currently or been in a relationship where the following occur: No concerns re ported THRIVE Score: 0 SHADE-7 AMB Questionnaire SHADE-7 Date SHADE - 7 assessed: 04/03/24 Source: Developed by Drs. Gabe Scott, Eva Ashford, Dominic Gutierrez and colleagues, with an educational jay from [employer]. Review of Systems Const All systems reviewed & are unremarkable except as noted in HPI and below Card Reports no additional complaints Resp Reports no additional complaints GI Reports no additional complaints Reports no additional complaints Physical exam (Primary Care) Vital Signs: Last Vital Signs Pulse 90 07/24/24 11:02 BP 118/72 07/24/24 11:02 Pulse Ox 97 07/24/24 11:02 Oxygen Delivery Method Room Air 07/24/24 11:02 BMI result Body Mass Index 36.3 Tobacco/Smoking Status: Tobacco use Status Tobacco use date assessed 07/24/24 07/24/24 11:09 Patient Tobacco Use Status Never used Tobacco 07/24/24 11:02 e-Cigarette/Vaping Use Never Used 07/24/24 11:02 Thrive Assessment: Date of Thrive Assessment Date Thrive assessed 03/27/24 07/24/24 11:02 Currently or been in a relationship where the following occur: No concerns reported Const General: no acute distress Eyes General: appearance normal, both eyes and all related structures Resp Effort & Inspection: normal respiratory effort Auscultation: clear to auscultation bilaterally Cardio Rhythm: regular rhythm Heart sounds: S1 normal heart sound present and S2 normal heart sound present Extrem Other: There is decreased range of motion of both hips right more than left, there is reproducible tenderness over right greater trochanteric area. Straight leg rising 90 degrees bilaterally Coding Level of Care Code Est Pt Level 3 (50108) Diagnoses Trochanteric bursitis of right hip M70.61 Hip bursitis location: trochanteric bursitis Assessment & Plan Assessment & Plan (1) Bursitis of hip, right: Code(s): M70.71 - Other bursitis of hip, right hip Category: Medical Qualifiers: Hip bursitis location: trochanteric bursitis Qualified Code(s): M70.61 - Trochanteric bursitis, right hip Plan: For persistent bursitis x-ray of both hips will be obtained patient will be referred to orthopedic surgeon for cortisone injection. She will schedule an appointment for physical therapy Orders: Orders XR hips GINI min 3V Today M70.61 - Trochanteric bursitis, right hip PT Evaluation and Treatment Today M70.61 - Trochanteric bursitis, right hip Referrals Orthopedics Referral M70.61 - Trochanteric bursitis, right hip
== END 2024-07-24 11:45 | disposition home or self-care (01) ==
PROVIDERS: PCP Internal Medicine; Visit Provider Internal Medicine
DX: M70.61 Trochanteric bursitis, right hip (principal)

== ENCOUNTER 2024-08-14 14:53 | Outpatient (AMB) | payer MEDICARE, BC, SELFPAY ==
--- NOTE | 2024-08-14 15:08 | MHC.OFFVIS ---
Vital Signs 08/14/24 15:16 Height 5 ft 1 in Weight 192 lb BMI 36.3 Intake Visit Reasons: New prob- RT hip pain Intake Note: Ana María a 68 year old female who presents today for an evaluation of right hip pain. Patient reports that she was seen by her PCP for hip pain and was referred to orthopedics. She is currently attending PT which has been providing her with relief. Her pain is located at the lateral aspect and radiates down her leg. Denies numbness or tingling. She mentions soreness to her left side that may be caused from over compensation. Allergies doxycycline Allergy (Verified 08/14/24 15:10) rash on face chest and arms Medication List - Last Reconciled 08/14/24 by Steph Le PA-C cholecalciferol (vitamin D3) 50 mcg PO DAILY gabapentin 100 mg PO BID meloxicam 15 mg PO DAILY omega 2-ojz-rkh-fish oil 1,000 (120-180) mg (Fish Oil) 1 cap PO DAILY pravastatin 20 mg PO DAILY HPI HPI New prob- RT hip pain: Details: 68-year-old female who presents to the office today for an evaluation of right hip pain. She was seen by her PCP for her hip who referred her to our office. She has been attending physical therapy for her hip with benefits. She currently states she has pain at the lateral aspect of her hip that radiates down her leg. She denies any numbness or tingling. She is unable to sleep on her sides due to the pain. She also experiences soreness in her left side due to overcompensating for her right side. She also reports she has pain in her shoulder that started along with her hip pain. Her pain is aggravated with applying weight and at night. She also hears cracking in her shoulder. Her shoulder pain is worse than her hip pain. [facility] Medical History (Updated 08/14/24 @ 15:22 by Steph Le PA-C) Knee pain, bilateral Obese Osteopenia Annual physical exam Normal Pap smear Mammogram normal Hyperlipemia Pain and swelling of left ankle Osteoarthritis of knees, bilateral Tear meniscus knee Surgical History H/O colonoscopy No pertinent past surgical history Family History Father No problems noted. Mother HTN (hypertension) Stroke Son No problems noted. Son No problems noted. Daughter No problems noted. Social History Housing: House Alcohol intake: current Alcohol intake frequency: holidays/special occasions only Patient Tobacco Use Status: Never used Tobacco e-Cigarette/Vaping Use: Never Used service: No Current occupational status: employed and retired Current occupation: right hand dominant Cognitive needs: No Hearing needs: No Vision needs: No Review of Systems Const All systems reviewed & are unremarkable except as noted in HPI and below Physical Exam Vital Signs: BMI result Body Mass Index 36.3 Const General: cooperative and no acute distress Orientation/consciousness: patient oriented x3 Resp Effort & Inspection: normal respiratory effort and able to speak in complete sentences Cardio Peripheral pulses: Peripheral pulses 2+ throughout Neuro General: patient oriented x3 Extrem Other: Right shoulder: Normal to inspection. Tenderness over the bicipital groove and along the deltoid region of the shoulder. Forward flexion to 175, external rotation to 90, internal rotation to S1. 5/5 RTC strength. Positive Castro and Segura?s. NVI. ? Assessment & Plan Assessment & Plan (1) Biceps tendonitis on right: Code(s): M75.21 - Bicipital tendinitis, right shoulder Category: Medical (2) Tendinitis of right rotator cuff: Code(s): M75.81 - Other shoulder lesions, right shoulder Category: Medical Plan We discussed options which include PT, NSAIDs and injections. The patient will defer on the injection today and proceed with PT and NSAIDs. If symptoms persist, she will contact me for an injection, otherwise, PRN. Orders: Orders PT Evaluation and Treatment 08/14/24 M75.21 - Bicipital tendinitis, right shoulder, M75.81 - Other shoulder lesions, right shoulder Patient Instructions: Scribed for Steph Le PA-C, by William Osborne pesticide use medical coordinator, on 08/14/2024 at 3:00 PM EST.? I, Steph Le PA-C, have personally reviewed and agree with the information entered by the scribe. Coding Level of Care Code Est Pt Level 3 (61101) Complex EM visit Add On G2211 Diagnoses Biceps tendonitis on right M75.21 Tendinitis of right rotator cuff M75.81
[2024-08-14 15:16] VITALS: BMI 36.3
== END 2024-08-14 16:46 | disposition home or self-care (01) ==
PROVIDERS: PCP Internal Medicine; Visit Provider Physician Assistant
DX: M75.21 Bicipital tendinitis, right shoulder (principal); M75.81 Other shoulder lesions, right shoulder
CPT/HCPCS: 99213; G2211

== ENCOUNTER → 2024-08-14 14:53 | Outpatient (BNVA) | payer MEDICARE, BC, SELFPAY | PROVIDERS: PCP Internal Medicine; Visit Provider Physician Assistant | DX: M75.81 Other shoulder lesions, right shoulder (principal); M75.21 Bicipital tendinitis, right shoulder | CPT/HCPCS: 99212 ==

== ENCOUNTER 2024-08-29 10:28 | Outpatient (REF) | payer MEDICARE, BC, SELFPAY ==
--- OUTSIDE RECORDS SUMMARY | 2024-08-29 10:30 | XMS_ITS ---
[facility] Organization [facility] Address [address] [facility] [address] [address] Care Team Providers Care Dermatology Teacher Name Role Phone Sandra Sierra MD Primary Care Provider Lucio Valdez Unavailable [phone] Allergies Allergen (clinical drug ingredient) Drug/Non Drug Allergy documented on EMR Reaction Allergy Type Onset Date Status bacitracin Antibiotic pt unsure of name Drug Allergy Active REASON FOR VISIT Last PCP visit 05/2023, Painful thick toenails which are aggrevated by shoes and causes difficulty standing/walking Medications Medication SIG (Take, Route, Frequency, Duration) Notes Start Date End Date Status Pravastatin Sodium 20 MG 1 tablet Orally Once a day for 30 day(s) Not-Taking Fish Oil Not-Taking Vitamin D3 Active Meloxicam 15 MG 1 tablet Orally Once a day for 30 day(s) Not-Taking Vitamin D3 Not-Takin g Gabapentin Active Meloxicam 15 MG 1 tablet Orally Once a day for 30 day(s) Active Fish Oil 1000 MG 1 capsule Orally Onc e a day for 30 day(s) Active Pravastatin Sodium 20 MG 1 tablet Orally Once a day for 30 day(s) Active Olmesartan Medoxomil 20 MG 1 tablet Orally Once a day for 30 day(s) Active aleve prn Not-Taking Olmesartan Medoxomil 20 MG 1 tablet Orally Once a day for 30 day(s) Not-Taking aleve prn Not-Taking Social History Tobacco Use: Social History Observation Description Date Details (start date - stop date) Never Smoker NA - NA Tobacco Use/Smoking Question Answer Notes Are you a: nonsmoker Tobacco use other than smoking: Question Answer Notes Are you an other tobacco user? No Problems Problem Type SNOMED Code ICD Code Onset Dates Problem Status W/U Status Risk Notes Problem Localized, primary osteoarthritis of the ankle and/or foot (720888648) Primary osteoarthrit is, left ankle and foot (M19.072) Active confirmed Problem 362813327 Raynaud's disease without gangrene (I73.00) Active confirmed Vital Signs Height 5ft 3in in 10/22/2023 Weight 195 lbs 10/22/2023 BMI 34.54 kg/m2 10/22/2023 Encounters Encounter Location Date Provider Diagnosis [facility] [place] [address] [facility] [address] [place] [address] 10/22/2023 Lucio Ochoa Pain in left foot M79.672 ; Primary osteoarthritis, left ankle and foot M19.072 ; Raynaud's disease without gangrene I73.00 ; Tinea unguium B35.1 ; Pain in right toe(s) M79.674 and Pain in left toe(s) M79.675 Assessments Encounter Date Diagnosis (ICD Code) Assessment Notes Treatment Notes Treatment Clinical Notes Section Notes 10/22/2023 Pain in left foot (ICD-10 - M79.672) 10/22/2023 Primary osteoarthritis, left ankle and foot (ICD-10 - M19.072) 10/22/2023 Raynaud's disease without gangrene (ICD-10 - I73.00) 10/22/2023 Tinea unguium (ICD-10 - B35.1) 10/22/2023 Pain in right toe(s) (ICD-10 - M79.674) 10/22/2023 Pain in left toe(s) (ICD-10 - M79.675) Plan Of Treatment Next Appt Details Follow Up: prn, Reason: Procedure Notes * Category Sub-Category Detail Notes Debride Nails 1-5 Procedure: Nail debrideme nt performed extensively to reduce/remove overall nail length and girth, subungual debris, and necrotic tissue, by manual and electrical means by use of a nail nipper and/or dremel, to more viable healthy nail plate or bed tissue 1-5. Silver nitrate used for any petechial bleeding as necessary. Patient chooses, no pharmaceutical tx (39220) Progress Notes * Linh HELLEROB:1955 (68 yo F)Acc No.[id number]:10/22/2023 Progress Note Patient:?Ana María Heller Provider:?Lucio Ochoa DPM :1955???Age:68 Y???Sex:Female D ate:10/22/2023 Address:[address] [place], [place] [id number] Pcp:Sandra Sierra MD Subjective: * Chief Complaints: * ???Last PCP visit ai nful thick toenails which are aggrevated by shoes and causes difficulty standing/walking * HPI: ???Foot Pain:?Nature:?aching, tingling, swelling, cold feeling.?Location?Top, Midfoot, Left , outside left ankle.?Duration:?several years.?Onset/Cause:?unknown.?Course:?worse.?Aggrevated:?rest.?Treatments:?topical meds don't work , rest.?Quality/Severity?7, scale 1-10.?Toe pain:?Nature:?aching.?Location:?2nd toe, Left foot.?Duration:?a year or more.?Onset/Cause:?gradual.?Course:?worse.?Aggrevated by:?standing/walking.?Painful Nails:?Pt States Last PCP Visit:?Date:?06/04/2023 * ROS:?General/Constitutional:?Nausea?denies.?Vomiting?denies.?Hunger Thirst?denies.?Loss appetite?denies.?Chills?denies.?Fatigue?denies.?Fever?denies.?Night Sweats?denies.?Unexplained weight loss?denies.?Unexplained weight gain?denies.?HEENTM:?Dentures?denies.?Dizziness?denies.?Glasses/contacts?denies.?Retinopathy?de nies.?Blurred/double vision?denies.?TMJ?denies.?Discharge/drainage?denies.?Implants?denies.?Sore throat?denies.?Dental implants?denies.?Hard of hearing ?denies.?Difficulty chewing/swallowing/speaking?denies.?Nose bleeds?denies.?Sore mouth?denies.?Respiratory:?On Oxygen?denies.?Pneumonia/pleurisy?denies.?Bronchitis?denies.?Emphysema?denies.?C oughing?denies.?Cough blood?denies.?Shortness of breath?denies.?Wheezing?denies.?Cardiovascular:?Pacemaker?denies.?MVP?denies.?WPW?denies.?CHF?denies.?Heart attack?denies.?Septal defect?denies.?Rapid beat?denies.?Chest pain ?denies.?Atrial Fib.?denies.?Murmur/Palpitations?denies.?Gastrointestinal:?Hemorrhoids?denies.?Stomach/Abdominal pain?denies.?Dark blood stool?denies.?Irritable bowel ?denies.?Constipation?denies.?Diarrhea?denies.?Hematology:?Swelling?denies.?Clots?denies.?Varicose Veins?denies.?Bruising?denies.?Bleeding problem?denies.?Genitourinary:?Blood urine?denies.?Frequent/Painfu/urination/bladder control?denies.?Kidney stones?denies.?Infection (UTI)?denies.?Nephropathy?denies.?sex trans dis (STD)?denies.?Prostate?denies.?Musculoskeletal:?Hammertoes?denies.?Bunions?denies.?Back Pain?denies.?Muscle Cramps/ Resting?admits.?Muscle cramps / walking?denies.?Generalized aches and pains?admits.?Weakness?denies.?Integ.:?[place]?denies.?Scars?denies.?Corns/calluses?denies.?Ingrown nails?denies.?Painful nails?denies.?Open Sores?denies.?Rashes?denies.?Neurologic:?Difficulty sleeping?denies.?Brain disorder?denies.?Numbness?denies.?Balance trouble?denies.?Confusion?denies.?Fainting/blackouts?denies.?Tingling?denies.?Tr emors?denies.? * Medical History:? * Surgical History:?No Surgica l History documented. * Hospitalization/Major Diagno stic Procedure:?No Hospitalization History. * Family History:?Mother: jono chavez, diagnosed with Family history of arthritis, Unspecified essential hypertension, Unspecified heart disease, Unspecified cerebral artery occlusion with cerebral infarction.?Father: .?Daughter(s): cancer.?Siblings: diagnosed with Unspecified essential hypertension, Unspecified heart disease.? * Social History:?Tobacco Use:?Tobacco Use/Smoking?Are you a:?nonsmoker ?Tobacco use other than smoking?Are you an other tobacco user??No ???Drugs/Alcohol:?Alcohol Screen?Did you have a drink containing alcohol in the past year?: Yes, Points: 0, Interpretation: Negative.?Miscellaneous:?no Caffeine. ?Children: yes, Three. ?Marital status: . 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 * Medications:?TakingGabapenti n Fish Oil 1000 MG Capsule 1 capsule Orally Once a dayMeloxicam 15 MG Tablet 1 tablet Orally Once a dayOlmesartan Medoxomil 20 MG Tablet 1 tablet Orally Once a dayPravastatin Sodium 20 MG Tablet 1 tablet Orally Once a dayVitamin D3 Taking Gabapentin Taking Fish Oil 1000 MG Capsule 1 capsule Orally Once a dayTaking Meloxicam 15 MG Tablet 1 tablet Orally Once a dayTaking Olmesartan Medoxomil 20 MG Tablet 1 tablet Orally Once a dayTaking Pravastatin Sodium 20 MG Tablet 1 tablet Orally Once a dayTaking Vitamin D3 Not-Taking/PRNFish Oil Vitamin D3 Meloxicam 15 MG Tablet 1 tablet Orally Once a dayPravastatin Sodium 20 MG Tablet 1 tablet Orally Once a dayOlmesartan Medoxomil 20 MG Tablet 1 tablet Orally Once a dayaleve prnaleve prnMedication List reviewed and reconciled with the patientNot-Taking/PRN Fish Oil Not-Taking/PRN Vitamin D3 Not-Taking/PRN Meloxicam 15 MG Tablet 1 tablet Orally Once a dayNot-Taking/PRN Pravastatin Sodium 20 MG Tablet 1 tablet Orally Once a dayNot-Taking/PRN Olmesartan Medoxomil 20 MG Tablet 1 tablet Orally Once a dayNot-Taking/PRN aleve prnNot-Taking/PRN aleve prnMedication List reviewed and reconciled with the patient * Allergies:?Antibiotic: pt un sure of nameyes[Allergies Verified] Objective: * Vitals:?Ht: 5ft 3in, Wt:195, BMI:34.54, Shoe size: 8.5, Ht-cm: 160.02 cm, Wt-k.45 kg. * Examination: ???General Examination: ?GENERAL APPEARANCE:?pleasant, alert, well nourished, well developed, well hydrated, with good attention to hygene/body habitus, and in no acute distress.?ORIENTED:?person,place, and time.?Neurological: ?SENSORY:?Neurological exam reveals intact sensorium, pain sensation normal, vibration sensation intact, pinprick sensation is normal in the lower extremities, Pt denies, anesthesia, burning, paresthesia, tingling, B/L.?TINEL'S COMPRESSION:?Negative tarsal tunnel, emma pedis, and medial calcaneal nerves B/L.?BABINSKI REFLEX:?absent.?Neuroma Pain: ?PALPATION:?No interspace pain noted on palpation.?Vascular: ?DP PULSES:?2/4, B/L.?PT PULSES:?2/4, B/L.?CAPILLARY FILL TIME:?3 secs. per digit, B/L.?SKIN TEMPERTURE GRADIENT OF THE LOWER EXTERMITIES:?warm to cool, proximal to distal, B/L.?HAIR GROWTH/TEXTURE/ELASTICITY/TURGOR:?normal, B/L.?PIGMENTATION:?normal, B/L.?EDEMA:?no edema.?TELANGECTASIA:?absent.?VARICOSITIES:?absent.?Dermatologic: ?SKIN FINDINGS:? Skin exam reveals Keratotic lesion(s) located at, Plantar, T1.?Orthopedic: ?MUSCLE STRENGTH:?5/5 all groups in a symmetrical fashion , B/L.?GAIT ABNORMALITY:?pronated, abducted, B/L.?DIGITAL DEFORMITIES:? Digital contracture--flexible hts t1.?Nails: ?NAILS are:?Elongated, overgrown, dystrophic, greater than 3mm thick, discolored and friable with crumbly malodorous subungual debris, with pain on palpation, T1.? Assessment: * Assessment: 1.?Pain in left foot - M79.6 72 (Primary)?2.?Primary osteoarthritis, left ankle and foot - M19.072?3.?Raynaud's disease without gangrene - I73.00?4.?Tinea unguium - B35.1?5.?Pain in right toe(s) - M79.674?6.?Pain in left toe(s) - M79.675? Plan: * Treatment: * Procedures:?Debride Nails 1-5:?Procedure:?Nail debridement performed extensively to reduce/remove overall nail length and girth, subungual debris, and necrotic tissue, by manual and electrical means by use of a nail nipper and/or dremel, to more viable healthy nail plate or bed tissue 1-5. Silver nitrate used for any petechial bleeding as necessary. Patient chooses, no pharmaceutical tx (65589).? * Procedure Codes:?43064 CECIL MARSHALL NAIL, 1-5, Modifiers: XS * Preventive Medicine:? ??Counseling:?Discussion:?-14: Office or other outpatient visit for the evaluation and management of an established patient, which required a medically appropriate history and/or examination and MODERATE level of DECISION MAKING for: 1 OR MORE CHRONIC PROBLEM(S) THATS WORSENING, 2 STABLE CHRONIC PROBLEMS, A NEWLY DIAGNOSED PROBLEM WITH UNCERTAIN PROGNOSIS, AN ACUTE COMPLICATED INJURY WITH MULTIPLE TREATMENT OPTIONS, OR AN ACUTE PROBLEM WITH ACCOMPANYING SYSTEMIC SYMPTOMS, THAT POSE(S) A MODERATE RISK OF MORBIDITY. THIS CONDITION MAY ALSO INCLUDE RX DRUG MANAGEMENT, OR A DECISON FOR MINOR SURGERY. The visit on the day of the encounter encompassed interpreting the data and educating the patient as to the nature of their condition, treatment options available according to their individual PMH, meds, allergies, and overall health/living conditions, as well as any potential risks or complications that may occur from a failure to adhere to, and participate in, the recommended course of therapy. The discussion included a complete verbal, and/or written explanation of the examination results, any x-rays taken, the proposed diagnosis, and outline of the treatment plan. A schedule for future care needs was also explained. The patient verbalized an understanding of the instructions at this time and agreed to be an active participant in their treatment. If the patient should think of any questions or concerns after the visit, I have encouraged the patient to call the office--pt to use digital padding t1 and also continue with supportive shoes and orthoses for flatfoot and arthritic pain tx; consider FT t1 if needed.? * Follow Up:?prn * Images: * Sign off status: Completed true * Provider:?Lucio Ochoa DPM Date:? 024 Generated for Azeem guerrero/Geoffrey/eTransmitting on:?08/29/2024 10:30 AM EST History and Physical Notes * HPI (History of Present Illness) Category Sub-Category Detail Notes Category Not es Toe pain Nature: aching Location: 2nd toe, Left foot Duration: a year or more Onset/Cause: gradual Course: worse Aggravated by: standing/walking Painful Nails Pt States Last PCP Visit: Date:: 06/04/2023 Foot Pain Aggrevated: rest Onset/Cause: unknown Course: worse Duration: several years Nature: aching, tingling, sw elling, cold feeling Treatments: topical meds don't w ork , rest Quality/Severity 7, scale 1-10 Location Top, Midfoot, Left , outside left ankle Examination Category Sub-Category Detail Notes Category Not es Neuroma Pain PALPATION: No interspace pain noted on palpation Neurological SENSORY: Neurological exa m reveals intact sensorium, pain sensation normal, vibration sensation intact, pinprick sensation is normal in the lower extremities, Pt denies, anesthesia, burning, paresthesia, tingling, B/L BABINSKI REFLEX: absent TINEL'S COMPRESSION: Negative tarsal mark ibis, emam pedis, and medial calcaneal nerves B/L Dermatologic SKIN FINDINGS: Skin exam reveal s Keratotic lesion(s) located at, Plantar, T1 Orthopedic GAIT ABNORMALITY: pronated, abducted, B/L DIGITAL DEFORMITIES: Digital contracture --flexible hts t1 MUSCLE STRENGTH: 5/5 all groups in a symmetrical fashion , B/L General Examination GENERAL APPEARANCE: pleasant , alert, well nourished, well developed, well hydrated, with good attention to hygene/body habitus, and in no acute distress ORIENTED: person,place, and ti me Vascular DP PULSES (B): 2/4, B/L PT PULSES (B): 2/4, B/L CAPILLARY FILL TIME: 3 secs. per digit, B/L TEMPERTURE GRADIENT (C): warm to cool, p roximal to distal, B/L TROPHIC CONDITION-TEXTURE/ELASTICITY/TURGOR/HAIR GROWTH (B): normal, B/L EDEMA (C): no edema TELANGECTASIA: absent VARICOSITIES: absent PIGMENTATION: normal, B/L Nails NAILS are: Elongated, overg rown, dystrophic, greater than 3mm thick, discolored and friable with crumbly malodorous subungual debris, with pain on palpation, T1
--- OUTSIDE RECORDS SUMMARY | 2024-08-29 10:31 | XMS_ITS | Patient Health Record ---
Author Organization [facility] Address [address] [facility] [place] [address] Care Team Providers Care Candy Depositing Machine Operator Name Role Phone Sandra Sierra MD Primary Care Provider Lucio Valdez Unavailable [phone] Allergies Allergen (clinical drug ingredient) Drug/Non Drug Allergy documented on EMR Reaction Allergy Type Onset Date Status bacitracin Antibiotic pt unsure of name Drug Allergy Active Reason For Referral No Information Medications Medication SIG (Take, Route, Frequency, Duration) Notes Start Date End Date Status Pravastatin Sodium 20 MG 1 tablet Orally Once a day for 30 day(s) Not-Taking Fish Oil Not-Taking Vitamin D3 Active Meloxicam 15 MG 1 tablet Orally Once a day for 30 day(s) Not-Taking Vitamin D3 Not-Takin g Meloxicam 15 MG 1 tablet Orally Once a day for 30 day(s) Active Fish Oil 1000 MG 1 capsule Orally Onc e a day for 30 day(s) Active aleve prn Not-Taking Pravastatin Sodium 20 MG 1 tablet Orally Once a day for 30 day(s) Active Olmesartan Medoxomil 20 MG 1 tablet Orally Once a day for 30 day(s) Active Gabapentin Active aleve prn Not-Taking Olmesartan Medoxomil 20 MG 1 tablet Orally Once a day for 30 day(s) Not-Taking Social History Tobacco Use: Social History Observation Description Date Details (start date - stop date) Never Smoker NA - NA Tobacco Use/Smoking Question Answer Notes Are you a: nonsmoker Tobacco use other than smoking: Question Answer Notes Are you an other tobacco user? No Problems Problem Type SNOMED Code ICD Code Onset Dates Problem Status W/U Status Risk Notes Problem Bursitis (46858321) Bursitis (727.3) Active confirmed Problem Myositis (21638791) Myositis (729.1) Active confirmed Problem Pain in limb (63761942) Pain in Limb (729.5) Active confirmed Problem Plantar fasciitis (526815908) Plantar Fasciitis (728.71) Active confirmed Problem Calcaneal spur (96612205) Calcaneal spur (726.73) Active confirmed Problem Localized, primary osteoarthritis of the ankle and/or foot (661804050) Primary osteoarthriti s, left ankle and foot (M19.072) Active confirmed Problem 647142267 Raynaud's disease without gangrene (I73.00) Active confirmed Vital Signs Height 5ft 3in in 10/22/2023 Weight 195 lbs 10/22/2023 BMI 34.54 kg/m2 10/22/2023 Encounters Encounter Location Date Provider [facility] [address] [address] 10/22/2023 Lucio Ochoa Pain in left foot M79.672 ; Primary osteoarthritis, left ankle and foot M19.072 ; Raynaud's disease without gangrene I73.00 ; Tinea unguium B35.1 ; Pain in right toe(s) M79.674 and Pain in left toe(s) M79.[address] [facility] [address] [facility]/27/[facility]23 Lucio Ochoa Assessments Encounter Date Diagnosis (ICD Code) Assessment [...] toe(s) (ICD-10 - M79.675) Plan Of Treatment Pending Test Test Name Order Date X ray : Ankle, left 3V 04/24/2022 X ray : Foot, right 2V 12/13/2012 X ray : Foot, left 3V 04/24/2022 [id number] TENDON SHEATH/LIGAMENT 0 01/13/2013 [id number] TENDON SHEATH/LIGAMENT 0 02/14/2013 Insurance Providers Payer Name Payer Address Payer Phone Subscriber Number Group Number Insured Name Patient Relationship to Insured Coverage Start Date Coverage End Date Medicare [employer] [address] [place] [address] [id number] Ana María Heller Self - patient is the insured [facility] [address] [place] [address] [id number] Davon Heller Spouse - patient is the spouse of the insured 2 Medical (General) History Medical History History ICD Code measles mumps chicken pox Arthritis Back,Hip,and Knee pain CAD (Cholesterol) covid-19 High blood pressure Osteoporosis Surgical History Surgery Date(Month/Year)
--- OUTSIDE RECORDS SUMMARY | 2024-08-29 10:31 | XMS_ITS ---
Author Organization [facility] Address [address] [place] [address] Care Team Providers Care Mail Censor Name Role Phone Sandra Sierra MD Primary Care Provider Lucio Valdez [phone] REASON FOR VISIT RS appt Encounters Encounter Location Date Provider Diagnosis [address] [address] 09/27/2023 Lucio Ochoa Plan Of Treatment No Information Progress Notes * Linh HELLEROB:1955 (68 yo F)Acc No.[id number]:09/27/2023 Patient:?Ana María Heller :1955???Age:68 Y???Sex:Female Address:[address] [place] [address], [address] * true * Date:? Generated for Printi ng/Faremig/eTransmitting on:?08/29/2024 10:30 AM EST
[2024-08-29 13:33] LABS: MANUAL DIFF FLAG NO
[2024-08-29 13:38] LABS: Appearance Urine Clear; Basophils Absolute Auto 0.1 X10*3/uL (0.0-0.2); Color Urine Yellow; Eosinophils Absolute Auto 0.2 X10*3/uL (0.0-0.4); Eosinophils Percent Auto 1.9 % (0-4); Glucose Urine UA Negative (Negative); Hematocrit 45.4 % (37.0-47.0); Hemoglobin 15.1 g/dl (12.0-16.0); Imm Gran Abs Auto 0.04 X10*3/uL (0.00-0.03); Imm Gran Pct Auto 0.5 % (0.0-0.4); Leukocyte Esterase Urine Small (1+) (Negative); Lymphocytes Absolute Auto 2.1 X10*3/uL (1.2-4.9); Lymphocytes Percent Auto 27.5 % (20-40); Mean Corpuscular HGB Conc 33.3 g/dl (31.0-35.0); Mean Corpuscular Hemoglobin 29.3 pg (27.0-33.0); Mean Platelet Volume 10.5 fL (9.4-12.3); Monocytes Absolute Auto 0.8 X10*3/uL (0.1-1.2); Neutrophils Absolute Auto 4.6 x10*3/uL (2.0-8.3); Neutrophils Percent Auto 59.1 % (45-73); Nitrite Urine Negative (Negative); PH 5.5 (5.0-9.0); Platelet Count 274 X10*3/uL (160-400); Red Blood Count 5.16 X10*6/uL (4.20-5.50); Red Cell Distribution Width 14.7 % (11.0-16.0); Specific Gravity - Urine 1.015 (1.005-1.025); UMIC TRIGGER UA YES; Urine Blood Small (1+) (Negative); Urine Ketones Negative (Negative); Urine Protein Negative (Neg-Trace); White Blood Count 7.8 X10*3/uL (4.8-10.8)
[2024-08-29 13:54] LABS: Bacteria Urine None Seen (None Seen); Hyaline Casts Urine 0-2 /LPF (0-2); RBC Urine 0-2 /HPF (0-2); WBC Urine 0-5 /HPF (0-5)
[2024-08-29 14:09] LABS: Alanine Aminotransferase 26 U/L (0-31); Alkaline Phosphatase 75 U/L (39-117); Anion Gap 10 (12-20); Aspartate Amino Transferase 28 U/L (5-31); Bilirubin Total 0.4 mg/dL (0.0-1.0); Blood Urea Nitrogen 13 mg/dL (9-16); Calcium 9.1 mg/dL (8.4-10.2); Carbon Dioxide 28 mmol/L (22-29); Chloride 107 mmol/L (96-108); Cholesterol 170 mg/dL (<200); Estimated Glomerular Filt Rate > 60; Glucose Fasting 102 mg/dL (60-99); HDL Cholesterol 38 mg/dL (>40); LDL Cholesterol Calculated 103 mg/dL (<100); Potassium 4.4 mmol/L (3.3-5.1); Sodium 141 mmol/L (135-145); Total Protein 6.7 g/dL (6.5-8.0); Triglycerides 145 mg/dL (<150)
[2024-08-29 14:10] LABS: TSH reflex Free T4 1.37 uIU/mL (0.32-4.0)
== END 2024-08-29 10:29 | disposition home or self-care (01) ==
LOC: HO.HMGCLDS 10:28
PROVIDERS: PCP Internal Medicine; Visit Provider Internal Medicine
DX: Z00.00 Encounter for general adult medical examination without abnormal findings (principal); E78.5 Hyperlipidemia, unspecified
CPT/HCPCS: 36415; 80053; 80061; 81001; 84443; 85025

== ENCOUNTER 2024-09-06 11:57 | Outpatient (AMB) | payer MEDICARE, BC, SELFPAY ==
--- OUTSIDE RECORDS SUMMARY | 2024-09-06 12:01 | XMS_ITS ---
Author Organization [facility] Address [address] [place] [address] Care Team Providers Care Health Outreach Worker Name Role Phone Sandra Sierra MD Primary Care Provider Lucio Valdez [facility] [phone] Encounters Encounter Location Date Provider Diagnosis [facility] [address] [address] 11/09/2023 Lucio Ochoa Plan Of Treatment No Information Progress Notes * Linh HELLEROB:1955 (69 yo F)Acc No.[id number]:11/09/2023 Progress Note Patient:Ana María JERNIGAN Provider:Afshan Ochoa DPM :1955???Age:68 Y???Sex:Female D ate:11/09/2023 Address:[address] [place], [place] [address] Pcp:Sandra Sierra MD Subjective: * Chief Complaints: * ??? * Medical History:? Objective: * Vitals:? Assessment: Plan: * Treatment: * Images: * The named appointment provid er may or may not be the originator of this progress note, and it is not deemed complete until electronically signed by the appointment provider. Sign off status: Pending * Provider:Afshan Ochoa DPM Date:? 024 Generated for Printi ng/Faxing/eTransmitting on:?09/06/2024 12:01 PM EST
--- OUTSIDE RECORDS SUMMARY | 2024-09-06 12:02 | XMS_ITS | Patient Health Record ---
Author Organization [facility] Address [address] [facility] [place] [address] Care Team Providers Care Assistant Store Manager Operations Name Role Phone Sandra Sierra MD Primary Care Provider Lucio Valdez Unavailable [phone] Allergies Allergen (clinical drug ingredient) Drug/Non Drug [...] Status W/U Status Risk Notes Problem Bursitis (69226456) Bursitis (727.3) Active confirmed Problem Myositis (55285288) Myositis (729.1) Active confirmed Problem Pain in limb (60919135) Pain in Limb (729.5) Active confirmed Problem Plantar fasciitis (087313475) Plantar Fasciitis (728.71) Active confirmed Problem Calcaneal spur (74998633) Calcaneal spur (726.73) Active confirmed Problem Localized, primary osteoarthritis of the ankle and/or foot (948367979) Primary osteoarthriti s, left ankle and foot (M19.072) Active confirmed Problem 359784031 Raynaud's disease without gangrene (I73.00) Active confirmed Vital Signs Height 5ft 3in in 10/22/2023 Weight 195 lbs 10/22/2023 BMI 34.54 kg/m2 10/22/2023 Encounters Encounter Location Date [facility] [address] [address] 10/22/2023 Lucio Ochoa Pain in left foot M79.672 ; Primary osteoarthritis, left ankle and foot M19.072 ; Raynaud's disease without gangrene I73.00 ; Tinea unguium B35.1 ; Pain in right toe(s) M79.674 and Pain in left toe(s) M79.[address] [facility] [address] 09/27/2023 Lucio Ochoa Assessments Encounter Date Diagnosis [...] X ray : Foot, left 3V 04/24/2022 [id number] TENDON SHEATH/LIGAMENT 0 01/13/2013 [id number] TENDON SHEATH/LIGAMENT 0 02/14/2013 Insurance Providers Payer Name Payer Address Payer Phone Subscriber Number Group Number Insured Name Patient Relationship to Insured Coverage Start Date Coverage End Date Medicare National [employer] [address] [place] [address] [id number] Ana María Heller Self - patient is the insured [facility] [address] [place] [address] [id number] Davon Heller Spouse - patient is the spouse of the insured 2 Medical (General) History Medical History History ICD Code measles mumps chicken pox Arthritis Back,Hip,and Knee pain CAD (Cholesterol) covid-19 High blood pressure Osteoporosis Surgical History Surgery Date(Month/Year)
--- OUTSIDE RECORDS SUMMARY | 2024-09-06 12:02 | XMS_ITS ---
Author Organization [facility] Address [address] [place] [address] Care Team Providers Care Public Safety Director Name Role Phone Sandra Sierra MD Primary Care Provider Lucio Valdez Unavailable [phone] Allergies Allergen (clinical drug ingredient) Drug/Non Drug [...] primary osteoarthritis of the ankle and/or foot (632466696) Primary osteoarthrit is, left ankle and foot (M19.072) Active confirmed Problem 846754484 Raynaud's disease without gangrene (I73.00) Active confirmed Vital Signs Height 5ft 3in in 10/22/2023 Weight 195 lbs 10/22/2023 BMI 34.54 kg/m2 10/22/2023 Encounters Encounter Location Date Provider Diagnosis [facility] [place] [address] [facility] [address] [place] [address] 10/22/2023 Lucio Ochoa Pain in left foot [...] as necessary. Patient chooses, no pharmaceutical tx (32265) Progress Notes * Linh HELLEROB:1955 (68 yo F)Acc No.[id number]:10/22/2023 Progress Note Patient:?Ana María Heller Provider:?Lucio Ochoa DPM :1955???Age:68 Y???Sex:Female D ate:10/22/2023 Address:[address] [place], [place] [phone] Pcp:Sandra Sierra MD Subjective: * Chief Complaints: [...] as necessary. Patient chooses, no pharmaceutical tx (25559).? * Procedure Codes:?21065 CECIL MARSHALL NAIL, 1-5, Modifiers: XS * [...] Ochoa DPM Date:? 024 Generated for Azeem guerrero/Geoffrey/eTleonila on:?09/06/2024 12:01 PM EST History and Physical Notes * HPI [...] absent TINEL'S COMPRESSION: Negative tarsal mark ibis, emma pedis, and medial calcaneal nerves B/L Dermatologic [...]
--- OUTSIDE RECORDS SUMMARY | 2024-09-06 12:02 | XMS_ITS ---
Author Organization [facility] Address [address] [place] [address] Care Team Providers Care Compliance Aide Name Role Phone Sandra Sierra MD Primary Care Provider Lucio Valdez [phone] REASON FOR VISIT RS appt Encounters Encounter Location Date Provider Diagnosis [address] [address] 09/27/2023 Lucio Ochoa Plan Of Treatment No Information Progress Notes * Linh HELLEROB:1955 (68 yo F)Acc No.[id number]:09/27/2023 Patient:?Ana María Heller :1955???Age:68 Y???Sex:Female Address:[address] [place] [address], [address] * true * Date:? Generated for Printi ng/Faremig/eTransmitting on:?09/06/2024 12:01 PM EST
[2024-09-06 12:30] VITALS: BP 124/76; PULSE 81; O2SAT 97; BMI 36.8
--- NOTE | 2024-09-06 12:30 | MHC.PC.OV ---
Vital Signs 09/06/24 12:30 Height 5 ft 1 in Weight 195 lb BMI 36.8 BP 124/76 Blood Pressure Location Lt brachial Position Sitting Pulse 81 Pulse Source Pulse Oximeter Pulse Oximetry (%) 97 Oxygen Delivery Method Room Air Intake Visit Reasons: Annual PE Intake Note: Pt is here today for PE. Allergies doxycycline Allergy (Verified 09/06/24 12:32) rash on face chest and arms Medication List - Last Reconciled 09/06/24 by Sandra Sierra MD cholecalciferol (vitamin D3) 50 mcg PO DAILY gabapentin 100 mg PO BID meloxicam 15 mg PO DAILY omega 5-bka-usx-fish oil 1,000 (120-180) mg (Fish Oil) 1 cap PO DAILY pravastatin 20 mg PO DAILY Tobacco use date assessed: 09/06/24 Fall risk assessment: No Falls in past year Last assessed Fall Risk: 09/06/24 Dental Screening Dental Screen Date: 09/06/24 Did you have a dental visit in the last 12 months?: Yes Did you have a dental problem in the last 6 months where you did not have access to dental care?: No Was dental information given to patient?: Patient has dentist HPI Annual PE HPI Details Pt presents for PE. [facility] Medical History (Updated 09/06/24 @ 12:58 by Sandra Sierra MD) Knee pain, bilateral Obese Osteopenia Annual physical exam Normal Pap smear Mammogram normal Hyperlipemia Pain and swelling of left ankle Osteoarthritis of knees, bilateral Tear meniscus knee Surgical History (Updated 09/06/24 @ 12:51 by Sandra Sierra MD) History of carpal tunnel surgery H/O colonoscopy No pertinent past surgical history Family History Father No problems noted. Mother HTN (hypertension) Stroke Son No problems noted. Son No problems noted. Daughter No problems noted. Social History Housing: House Alcohol intake: current Alcohol intake frequency: holidays/special occasions only Patient Tobacco Use Status: Never used Tobacco e-Cigarette/Vaping Use: Never Used service: No Current occupational status: employed and retired Current occupation: right hand dominant Cognitive needs: No Hearing needs: No Vision needs: No Questionnaire PHQ-9 Over the last 2 weeks, how often have you been bothered by any of the following problems? 1. Little interest or pleasure in doing things: not at all 2. Feeling down, depressed, or hopeless: not at all 3. Trouble falling or staying asleep, or sleeping too much: not at all 4. Feeling tired or having little energy: not at all 5. Poor appetite or overeating: not at all 6. Feeling bad about yourself - or that you are a failure or have let yourself or your family down: not at all 7. Trouble concentrating on things, such as reading the newspaper or watching television: not at all 8. Moving or speaking so slowly that other people could have noticed. Or the opposite - being so fidgety or restless that you have been moving around a lot more than usual: not at all 9. Thoughts that you would be better off or of hurting yourself in some way: not at all Total score: 0 Depression Screening Interpretation: Negative Depression Screening Done: Yes 73648 - PHQ-9 Billing: Yes Source: Developed by Drs. Gabe Scott, Eva Ashford, Dominic Gutierrez and colleagues, with an educational jay from [employer]. Thrive Questionnaire Date Thrive assessed: 09/06/24 I am a: Patient What is your living situation today?: I have a steady place to live Within the past 12 months, did the food you bought not last and you didn't have the money to get more?: Never true Within the past 12 months, did you worry whether your food would run out before you got money to buy more?: Never true Do you have trouble paying for medicines?: No Do you have trouble getting transportation to medical appointments?: No Do you have trouble paying your heating and electricity bill?: No Do you have trouble taking care of your child, family member or friend?: No Do you have trouble with day-to-day activities such as bathing, preparing meals, shopping, managing finances, etc.?: I choose not to answer this question Are you currently unemployed and looking for a job?: No Are you interested in more education?: No Please select the resources that you would like help with: None Currently or been in a relationship where the following occur: No concerns reported THRIVE Score: 0 AUDIT C Alcohol Use Questionnaire (AUDIT-C) 1. How often do you have a drink containing alcohol?: Monthly or less 2. How many drinks containing alcohol do you have on a typical day when you are drinking?: 1 or 2 3. How often do you have six or more drinks on one occasion?: Never Total Score: 1 SHADE-7 AMB Questionnaire SHADE-7 Date SHADE - 7 assessed: 09/06/24 Feeling nervous, anxious, or on edge: 0 = Not at all Not being able to stop or control worryin = Not at all Worrying too much about different things: 0 = Not at all Trouble relaxin = Not at all Being so restless that it is hard to sit still: 0 = Not at all Becoming easily annoyed or irritable: 0 = Not at all Feeling afraid as if something awful might happen: 0 = Not at all Total SHADE-7 score (0-4 normal; 5-9 mild; 10-14 moderate; 15-21 severe): 0 Source: Developed by Drs. Gabe Scott, Eva Ashford, Dominic Gutierrez and colleagues, with an educational jay from [employer]. SHADE-7 Assessment Billing SHADE-7 Assessment Tool: SHADE-7 Assessment 88514 Review of Systems Const All systems reviewed & are unremarkable except as noted in HPI and below Eyes Reports no additional complaints ENT Reports no additional complaints Card Reports no additional complaints Resp Reports no additional complaints GI Reports no additional complaints Reports no additional complaints Physical exam (Primary Care) Vital Signs: Last Vital Signs Pulse 81 09/06/24 12:30 BP 124/76 09/06/24 12:30 Pulse Ox 97 09/06/24 12:30 Oxygen Delivery Method Room Air 09/06/24 12:30 BMI result Body Mass Index 36.8 Tobacco/Smoking Status: Tobacco use Status Tobacco use date assessed 09/06/24 09/06/24 12:35 Patient Tobacco Use Status Never used Tobacco 09/06/24 12:35 e-Cigarette/Vaping Use Never Used 09/06/24 12:35 PHQ-9: PHQ-9 Score PHQ-9: Total score 0 09/06/24 12:35 Depression Screening Interpretation: Negative Thrive Assessment: Date of Thrive Assessment Date Thrive assessed 09/06/24 09/06/24 12:35 Currently or been in a relationship where the following occur: No concerns reported Const General: no acute distress HENMT Head: Yes normal to inspection Ears: hearing grossly normal bilaterally Face and sinus: Yes normal facial exam Throat: Yes posterior oropharynx normal Eyes General: appearance normal, both eyes and all related structures Neck Neck: Yes no lymphadenopathy and Yes supple Resp Effort & Inspection: normal respiratory effort Auscultation: clear to auscultation bilaterally Cardio Rhythm: regular rhythm Heart sounds: S1 normal heart sound present and S2 normal heart sound present GI Inspection: Yes normal to inspection Palpation (GI): Soft to palpation Percussion: Yes normal to percussion Auscultation: normal bowel sounds Coding Level of Care Code Est Pt Prev Care >65y(52976) Diagnoses H/O colonoscopy Z98.890 Hyperlipemia E78.5 Annual physical exam Z00.00 Postmenopausal Z78.0 Osteopenia M85.80 Additional Codes SHADE-7 Assessment Billing - SHADE-7 Assessment Tool: SHADE-7 Assessment 65197 ([id number]) PHQ-9 - 31076 - PHQ-9 Billing: Yes ([id number]) Assessment & Plan Assessment & Plan (1) H/O colonoscopy: Comment: 01/14 small polyp recheck 5 years, 10/2023 1 polyp, TA, Dr. Moore, recheck 7 yrs Code(s): Z98.890 - Other specified postprocedural states Category: Surgical Plan: up to date with GI (2) Hyperlipemia: Code(s): E78.5 - Hyperlipidemia, unspecified Category: Medical Plan: Continue Pravastatin (3) Annual physical exam: Comment: well-balanced diet regular exercise and loss discussed with patient, pt will schedule her mammogram Code(s): Z00.00 - Encounter for general adult medical examination without abnormal findings Category: Medical Plan: Well-balanced diet regular exercise weight loss discussed with the patient. (4) Postmenopausal: Code(s): Z78.0 - Asymptomatic menopausal state Category: Medical Plan: Check DEXA continue vitamin-D (5) Osteopenia: Code(s): M85.80 - Other specified disorders of bone density and structure, unspecified site Category: Medical Plan: cont vit D Orders: Orders XR DEXA axial skeleton Today Z78.0 - Asymptomatic menopausal state TSH reflex Free T4 1 Year E55.9 - Vitamin D deficiency, unspecified, M85.80 - Other specified disorders of bone density and structure, unspecified site, Z00.00 - Encounter for general adult medical examination without abnormal findings Vitamin D 25-OH Total 1 Year E55.9 - Vitamin D deficiency, unspecified, M85.80 - Other specified disorders of bone density and structure, unspecified site, Z00.00 - Encounter for general adult medical examination without abnormal findings Comprehensive [place]. Panel Fast 1 Year E55.9 - Vitamin D deficiency, unspecified, M85.80 - Other specified disorders of bone density and structure, unspecified site, Z00.00 - Encounter for general adult medical examination without abnormal findings Complete Blood Count Auto Diff 1 Year E55.9 - Vitamin D deficiency, unspecified, M85.80 - Other specified disorders of bone density and structure, unspecified site, Z00.00 - Encounter for general adult medical examination without abnormal findings Lipid Panel 1 Year E55.9 - Vitamin D deficiency, unspecified, M85.80 - Other specified disorders of bone density and structure, unspecified site, Z00.00 - Encounter for general adult medical examination without abnormal findings
== END 2024-09-06 13:05 | disposition home or self-care (01) ==
PROVIDERS: PCP Internal Medicine; Visit Provider Internal Medicine
DX: Z00.00 Encounter for general adult medical examination without abnormal findings (principal); Z98.890 Other specified postprocedural states; M85.80 Other specified disorders of bone density and structure, unspecified site; E78.5 Hyperlipidemia, unspecified; Z78.0 Asymptomatic menopausal state

== ENCOUNTER → 2024-09-06 11:57 | Outpatient (BNVA) | payer MEDICARE, BC, SELFPAY | PROVIDERS: PCP Internal Medicine; Visit Provider Internal Medicine | DX: Z00.00 Encounter for general adult medical examination without abnormal findings (principal); E78.5 Hyperlipidemia, unspecified; M85.80 Other specified disorders of bone density and structure, unspecified site; E55.9 Vitamin D deficiency, unspecified; Z78.0 Asymptomatic menopausal state; Z98.890 Other specified postprocedural states | CPT/HCPCS: 96127; 99397 ==

== ENCOUNTER 2024-10-12 10:26 | Outpatient (REF) | payer MEDICARE, BC, SELFPAY ==
--- NOTE | ~2024-10-12 | MM_ITS ---
EXAMINATION: DXA BONE DENSITY AXIAL HISTORY: Estrogen deficiency TECHNIQUE: FlowBelow Aero Dual energy absorptiometry (DEXA) of the lumbar spine, total left hip, and femoral neck was performed. COMPARISON: Comparison is made with the prior examination dated 06/24/2020. FINDINGS: The bone mineral density of the lumbar spine is 1.054 with a T-score of -1.1, and a Z-score of -0.2. This represents a BMD change of 0.1% compared to the prior exam. This is not statistically significant. The bone mineral density of the left total hip is 0.909 with a T-score of -0.8, and a Z-score of 0.0. This represents BMD change of -4.9% compared to the prior exam. This is statistically significant. The bone mineral density of the left femoral neck is 0.805 with a T-score of -1.7, and a Z-score of -0.69. This represents BMD change of 0.6% compared to the prior exam. FRACTURE RISK: The FRAX index suggests a ten year probability of major osteoporotic fracture of 9.2%, and of hip fracture 1.2%. MM/XR DEXA axial skeleton IMPRESSION: Based on bone mineral density, and according to World Health Organization (WHO) criteria, the diagnosis is consistent with osteopenia. All bone density values are in grams per centimeter squared (g/cm2). Statistically, 68% of repeat scans fall within 1 SD (+/- 0.010 g/cm2 for AP spine L1-L4) and 1 SD (+/- 0.012 g/cm2 for femur total) FRAX is a trademark of the [employer]'s [place] for Metabolic Bone Disease, a World Health Organization (WHO) Collaborating Center. Electronically signed by: Gabe Aldana MD 10/12/2024 02:48 PM [facility]
--- OUTSIDE RECORDS SUMMARY | 2024-10-12 11:12 | XMS_ITS ---
Author Organization [facility] Address [address] [facility] [place] [address] Care Team Providers Care Head Cashier Name Role Phone Sandra Sierra MD Primary Care Provider Lucio Valdez Unavailable [phone] Allergies Allergen (clinical drug ingredient) Drug/Non Drug [...] primary osteoarthritis of the ankle and/or foot (913223934) Primary osteoarthrit is, left ankle and foot (M19.072) Active confirmed Problem 425402214 Raynaud's disease without gangrene (I73.00) Active confirmed Vital Signs Height 5ft 3in in 10/22/2023 Weight 195 lbs 10/22/2023 BMI 34.54 kg/m2 10/22/2023 Encounters Encounter Location Date Provider Diagnosis [facility] [place] [address] [facility] [address] [place] [address] 10/22/2023 Lucio Ochoa Pain in left foot [...] as necessary. Patient chooses, no pharmaceutical tx (82482) Progress Notes * Linh HELLEROB:1955 (68 yo F)Acc No.[id number]:10/22/2023 Progress Note Patient:?Ana María Heller Provider:?Lucio Ochoa DPM :1955???Age:68 Y???Sex:Female D ate:10/22/2023 Address:[address] [place], [place] [phone] Pcp:Sandra Sierra MD Subjective: * Chief Complaints: [...] burning, paresthesia, tingling, B/L.?TINEL'S COMPRESSION:?Negative tarsal tunnel, emam pedis, and medial calcaneal nerves B/L.?BABINSKI REFLEX:?absent.?Neuroma [...] as necessary. Patient chooses, no pharmaceutical tx (95207).? * Procedure Codes:?96726 CECIL MARSHALL NAIL, 1-5, Modifiers: XS * [...] DPM Date:? 024 Generated for Azeem guerrero/Geoffrey/eTleonila on:?10/12/2024 11:11 AM EST History and Physical Notes * [...]
--- OUTSIDE RECORDS SUMMARY | 2024-10-12 11:12 | XMS_ITS | Patient Health Record ---
Author Organization [facility] Address [address] [facility] [place] [address] Care Team Providers Care Shirt Cleaner Name Role Phone Sandra Sierra MD Primary Care Provider Lucio Valdez Unavailable [phone] Allergies Allergen (clinical drug ingredient) Drug/Non Drug [...] Status W/U Status Risk Notes Problem Bursitis (99262763) Bursitis (727.3) Active confirmed Problem Myositis (59002740) Myositis (729.1) Active confirmed Problem Pain in limb (14999730) Pain in Limb (729.5) Active confirmed Problem Plantar fasciitis (494005981) Plantar Fasciitis (728.71) Active confirmed Problem Calcaneal spur (95800957) Calcaneal spur (726.73) Active confirmed Problem Localized, primary osteoarthritis of the ankle and/or foot (185833222) Primary osteoarthriti s, left ankle and foot (M19.072) Active confirmed Problem 607969171 Raynaud's disease without gangrene (I73.00) Active confirmed Vital Signs Height 5ft 3in in 10/22/2023 Weight 195 lbs 10/22/2023 BMI 34.54 kg/m2 10/22/2023 Encounters Encounter Location Date Provider Diagnosis [facility] [address] [address] 10/22/2023 Lucio Ochoa Pain in left foot [...] X ray : Foot, left 3V 04/24/2022 [id number] TENDON SHEATH/LIGAMENT 0 01/13/2013 [id number] TENDON SHEATH/LIGAMENT 0 02/14/2013 Insurance Providers Payer Name Payer Address Payer Phone Subscriber Number Group Number Insured Name Patient Relationship to Insured Coverage Start Date Coverage End Date Medicare [employer] [address] [place] [address] [id number] Ana María Heller Self - patient is the insured [facility] [address] [place] [address] [id number] Davon Heller Spouse - patient is the spouse of the insured 2 Medical (General) History Medical History History ICD Code measles mumps chicken pox Arthritis Back,Hip,and Knee pain CAD (Cholesterol) covid-19 High blood pressure Osteoporosis Surgical History Surgery Date(Month/Year)
--- OUTSIDE RECORDS SUMMARY | 2024-10-12 11:12 | XMS_ITS ---
Author Organization [facility] Address [address] [place] [address] Care Team Providers Care Electric Well Logging Operator Name Role Phone Sandra Sierra MD Primary Care Provider Lucio Valdez [facility] [phone] Encounters Encounter Location Date Provider Diagnosis [facility] [address] [address] 11/09/2023 Lucio Ochoa Plan Of Treatment No Information Progress Notes * Linh HELLEROB:1955 (69 yo F)Acc No.[id number]:11/09/2023 Progress Note Patient:Ana María JERNIGAN Provider:Afshan Ochoa DPM :1955???Age:68 Y???Sex:Female D ate:11/09/2023 Address:[address] [place], [place] [address] Pcp:Sandra Sierra MD Subjective: * Chief Complaints: [...] DPM Date:? 024 Generated for Printi ng/Faxing/eTransmitting on:?10/12/2024 11:11 AM EST
--- OUTSIDE RECORDS SUMMARY | 2024-10-12 11:12 | XMS_ITS ---
Author Organization [facility] Address [address] [place] [address] Care Team Providers Care Wool Grader Name Role Phone Sandra Sierra MD Primary Care Provider Lucio Valdez [phone] REASON FOR VISIT RS appt Encounters Encounter Location Date Provider Diagnosis [address] [address] 09/27/2023 Lucio Ochoa Plan Of Treatment No Information Progress Notes * Linh HELLEROB:1955 (68 yo F)Acc No.[id number]:09/27/2023 Patient:?Ana María Heller :1955???Age:68 Y???Sex:Female Address:[address] [place] [address], [address] * true * Date:? Generated for Printi ng/Faremig/eTransmitting on:?10/12/2024 11:11 AM EST
== END 2024-10-12 10:27 | disposition home or self-care (01) ==
LOC: HO.MAMMO 10:26
PROVIDERS: PCP Internal Medicine; Visit Provider Internal Medicine
DX: Z13.820 Encounter for screening for osteoporosis (principal); Z78.0 Asymptomatic menopausal state
CPT/HCPCS: 77080

== ENCOUNTER → 2024-10-12 10:53 | Outpatient (BNV) | payer MEDICARE, BC, SELFPAY | PROVIDERS: PCP Internal Medicine; Visit Provider Radiology Diagnostic Radiology | DX: E28.39 Other primary ovarian failure (principal) | CPT/HCPCS: 77080 ==